=== PATIENT | female | born 1985 | race Caucasian/White ===

== ENCOUNTER 2021-11-21 07:41 | Inpatient (IN) ==
[2021-11-21] MEDS ORDERED: OXYTOCIN 30 UNITS/500 ML BAG IV PRN (08:35)
--- NOTE | 2021-11-21 09:04 | History & Physical Report ---
Date of Service November 21, 2021 Assessment & Plan (1) Encounter for induction of labor: Plan: Pt is a G1 female at 38 4/7 weeks presenting to the Labor and delivery for induction of labor. -Admit to labor and delivery for IOL -Anticipate -Apply sauceda bulb for cervical ripening if needed -Augment with Pitocin as needed -Epidural available as needed -NPO, LR at 125 ml/hr -Continuous monitoring -Continue to monitor BP and treat as needed Admission and Anticipated Discharge Date Admission Date: November 21, 2021 History of Present Illness Chief Complaint: IOL Primary Care Provider: Lulú Lee DO Pt is a G1 female at 38 4/7 weeks presenting to the Labor and delivery for induction of labor. Pt has received routine care in [facility]. has been complicated by ICSI, Breech presentation with successful version on 11/14, CHTN treated with ASA amd propranolol, AMA, Hypothyroid with TSH b1olbde, GDM on insulin, and Polyhydramnios. Pt reports good movement, no gush of fluid, some dark blood from examination yesterday, and possibly some weak contractions that she has noticed intermittently. Pt would like to receive an epidural when able. Pt did not take her propranolol this morning and BP has been running a little high due to this and being anxious about delivery. Otherwise, pt was to receive a sauceda bulb yesterday for cervical ripening, however, a bed was not available for her last night, so this was not done. Pt has no other complaints or concerns at this time. OB Labs: Blood Type O Positive 11/14/21 Antibody Screen NEGATIVE 11/14/21 Hemoglobin 10.7 g/dL (12.0-16.0) L 11/14/21 Hematocrit 32.0 % (37-47) L 11/14/21 Mean Corpuscular Volume 85.8 fL (80-100) 11/14/21 Platelet Count 245 K/uL (130-400) 11/14/21 Rubella IgG Antibody Immune (Immune) 05/31/21 Rapid Plasma Reagin Nonreactive (Nonreactive) 05/31/21 Hepatitis B Surface Antigen Neg (Neg) 05/31/21 HIV (1&2) Ab and P24 Ag, 4th Gener Neg (Neg) 05/31/21 Glucose 1 Hour 50 gm Load 207 mg/dl (70-130) H 06/22/21 Maternal Serum Alpha Fetoprotein 38.3 ng/mL 06/22/21 OB Optional Labs: Chlamydia trachomatis RNA NOT DETECTED (NOT DETECTED) 05/31/21 Neisseria gonorrhoeae RNA NOT DETECTED (NOT DETECTED) 05/31/21 Thyroid Stimulating Hormone (TSH) 0.969 uIu/ml (0.300-4.500) 10/25/21 Alpha Fetoprotein Triple Screen SEE NOTE 06/22/21 Allergies Allergy/AdvReac Type Severity Reaction Status Date / Time Sulfa (Sulfonamide Allergy Unknown Verified 11/20/21 10:29 Antibiotics) Home Medications Medication Instructions Recorded Confirmed Type cholecalciferol (vitamin D3) 25 25 mcg PO DAILY 05/29/21 11/20/21 History mcg (1,000 unit) capsule fluticasone propionate 50 1 spray INTRANASAL DAILY PRN 05/29/21 11/20/21 History mcg/actuation nasal spray,suspension loratadine 10 mg tablet 10 mg PO DAILY 05/29/21 11/20/21 History prenat.vits,ian,pkl-bybl-hanbu 1 tab PO DAILY 05/29/21 11/20/21 History propranolol 20 mg tablet 20 mg PO DAILY tab 05/29/21 11/20/21 History doxylamine succinate 25 mg tablet 25 mg PO HS PRN tab 07/03/21 11/20/21 History (Unisom (doxylamine)) melatonin 3 mg capsule 3 mg PO HS PRN 07/03/21 11/20/21 History acetone (urine) test (Ketone Urine #50 ea 07/16/21 11/20/21 Rx Test) blood sugar diagnostic (OneTouch #150 ea 07/16/21 11/20/21 Rx Verio test strips) blood-glucose meter (OneTouch #1 ea 07/16/21 11/20/21 Rx Verio Flex meter) lancets 33 gauge (OneTouch Delica #150 ea 07/16/21 11/20/21 Rx Plus Lancet) pen needle, diabetic 32 gauge x #50 ea 08/20/21 11/20/21 Rx 5/32" (BD Ultra-Fine Lyssa Pen Needle) levothyroxine 100 mcg tablet 100 mcg PO DAILY #30 tab 10/26/21 11/20/21 Rx insulin NPH isoph U-100 human 100 20 unit SUBCUT QPM 11/21/21 History unit/mL (3 mL) subcutaneous pen (Novolin N Flexpen) Patient History Medical History (Updated 11/21/21 @ 09:01 by Popeye Lubin DO) Breech presentation GERD (gastroesophageal reflux disease) Hypertension chronic IBS (irritable bowel syndrome) Surgical History (Updated 07/03/21 @ 13:35 by Sravani Quiñones) H/O adenoidectomy History of appendectomy S/P wisdom tooth extraction Family History (Updated 07/03/21 @ 13:36 by Sravani Quiñones) Mother Hypertension Hypothyroidism Father [place]'s disease Social History (Updated 11/21/21 @ 07:58 by Teetee Rodriguez RN) Smoking Status: Never smoker Second Hand Exposure: No; Hx Alcohol Use: No Hx Substance Use: No Preferred Language: Ghanaian Communication Ability: Effective Professor Of Religion Required: No Beliefs That Will Affect Care: None marital status: marital status details: Miguel Angel ([phone] Current Living Situation: Spouse Current Living Situation Comment: and 1 dog current occupational status: employed current occupation: [employer] Other Information That Helps Us Care for You: No Feels Safe at Home: Yes Safety Concerns: Feels Safe At This Time Assistive Devices: Contacts and Glasses Review of Systems All systems reviewed & are unremarkable except as noted in HPI & below Physical Exam Physical Exam: General: Alert, oriented, no acute distress Cardiac: Regular rate and rhythm, normal S1, S2. No murmurs appreciated. Respiratory: Clear to auscultation b/l with good air flow entry, symmetric chest rise and fall. No wheezes or crackles. No increased work of breathing or accessory muscle use Abdomen: Gravid, soft, nontender. No guarding or CVA tenderness Skin: No rashes or lesions Extremities: Warm, dry, well-perfused with capillary refill <2s b/l. No lower extremity edema, erythema or swelling. Negative Sofia's sign b/l. Pelvic Exam per Dr. Stallworth Dilation: fingertip Effacement: 50% soft Station: -2 FHR Baseline: 150 BPM Variability:good Accelerations:present Decelerations:none Results & Data ([facility]) Vital Signs (Past 12 Hours) Vital Signs Pulse BP 11/21/21 08:35 100 H 161/93 H 11/21/21 08:22 96 H 163/102 H Supervising Physician Co-Signing Physician Notes cervical balloon placed without difficulty and instilled with 40cc of sterile water and placed on traction and attached to her left thigh. patient tolerated procedure well.Resident Physician Supervision Note: I interviewed and examined the patient. Discussed with Dr. Lubin and agree with findings and plan as documented in the note. Any exceptions or clarifications are listed here: [None] Documented By: Lizbet Cabezas MD, FACOG
[2021-11-21 09:17] LABS: Hematocrit (blood only) 32.1 % (37-47); Hemoglobin 10.8 g/dL (12.0-16.0); Mean Corpuscular Hemoglobin 28.3 pg (25-34); Mean Corpuscular Hgb Conc 33.6 g/dL (32-36); Mean Corpuscular Volume 84.3 fL (80-100); Mean Platelet Volume 12.5 fL (7.4-10.4); Platelet Count 218 K/uL (130-400); RDW Coefficient of Variation 13.7 % (11.5-14.5); RDW Standard Deviation 41.9 fL (36.4-46.3); Red Blood Count 3.81 M/uL (4.2-5.4); White Blood Count 8.53 K/uL (4.8-10.8)
[2021-11-21] MEDS: LACTATED RINGER'S 1,000 ML IV PRN ×3 (09:35→19:10)
[2021-11-21] MEDS: OXYTOCIN 30 UNITS/500 ML BAG IV PRN (09:55)
[2021-11-21] MEDS: BUTORPHANOL TARTRATE 1 MG/ML VIAL IV PRN ×2 (12:32→15:23)
[2021-11-21] MEDS ORDERED: fentaNYL citrate 100 MCG/2 ML VIAL ONE (17:46)
[2021-11-21] MEDS ORDERED: ePHEDrine sulfate 50 MG/ML AMP ONE (17:46)
[2021-11-21] MEDS ORDERED: BUPIVACAINE 0.25% 30 ML VIAL ONE (17:47)
[2021-11-21] MEDS ORDERED: SODIUM CHLORIDE 0.9% INJ 10 ML VIAL ONE (17:47)
[2021-11-21] MEDS ORDERED: fentaNYL 2MCG/ML ROPIVACAINE 1.25MG/ML 100 ML BAG EPI ONE (17:47)
--- NOTE | 2021-11-21 17:47 | Anesthesiology Consultation ---
Date of Service November 21, 2021 Assessment & Plan Chart Review Chart Review: Acceptable Risk for Surgery and Patient NOT seen in Pre Admission Testing Consults Requested none ASA ASA2 Proposed Anesthesia Anesthesia Type: Labor Epidural and CSE History Height/Weight Height: 5 ft 4 in Weight: 80.558 kg Allergies Allergy/AdvReac Type Severity Reaction Status Date / Time Sulfa (Sulfonamide Allergy Unknown Verified 11/20/21 10:29 Antibiotics) Medications Home Medications Medication Instructions Recorded Confirmed Last Taken cholecalciferol (vitamin D3) 25 25 mcg PO DAILY 05/29/21 11/20/21 11/20/21 08:00 mcg (1,000 unit) capsule 150 mcg fluticasone propionate 50 1 spray INTRANASAL DAILY PRN 05/29/21 11/20/21 Unknown mcg/actuation nasal spray,suspension loratadine 10 mg tablet 10 mg PO DAILY 05/29/21 11/20/21 11/20/21 08:00 10 mg prenat.vits,ian,yry-tmhf-dhkax 1 tab PO DAILY 05/29/21 11/20/21 11/20/21 08:00 1 tab propranolol 20 mg tablet 20 mg PO DAILY tab 05/29/21 11/20/21 11/20/21 07:00 20 mg doxylamine succinate 25 mg tablet 25 mg PO HS PRN tab 07/03/21 11/20/21 11/20/21 21:00 (Unisom (doxylamine)) 25 mg melatonin 3 mg capsule 3 mg PO HS PRN 07/03/21 11/20/21 11/20/21 21:00 3 mg acetone (urine) test (Ketone Urine #50 ea 07/16/21 11/20/21 Unknown Test) blood sugar diagnostic (OneTouch #150 ea 07/16/21 11/20/21 Unknown Verio test strips) blood-glucose meter (OneTouch #1 ea 07/16/21 11/20/21 Unknown Verio Flex meter) lancets 33 gauge (OneTouch Delica #150 ea 07/16/21 11/20/21 Unknown Plus Lancet) pen needle, diabetic 32 gauge x #50 ea 08/20/21 11/20/21 Unknown 5/32" (BD Ultra-Fine Lyssa Pen Needle) levothyroxine 100 mcg tablet 100 mcg PO DAILY #30 tab 10/26/21 11/20/2122 07:00 100 mcg insulin NPH isoph U-100 human 100 20 unit SUBCUT QPM 11/21/21 11/19/21 21:00 unit/mL (3 mL) subcutaneous pen 20 units (Novolin N Flexpen) Active Medications Generic Name Dose Route Start Last Admin Trade Name Freq PRN Reason Stop Dose Admin Butorphanol Tartrate 1 mg 11/21/21 12:26 11/21/21 15:23 Butorphanol Tartrate 1 Mg/Ml Vial IV 12/21/21 12:25 1 mg Q2H PRN Administration Pain Lactated Ringer's 1,000 mls @ 125 mls/hr 11/21/21 08:35 11/21/21 17:40 Lr IV 11/23/21 08:34 999 mls/hr .Q8H PRN Infusion L&D Protocol Protocol Oxytocin 30 units in 500 mls @ 17 mls/hr 11/21/21 09:28 11/21/21 17:05 Pitocin IV 11/23/21 09:27 1.02 units/hr .Q24H PRN 17 mls/hr Labor Induction/Augmentation Titration Protocol 1.02 UNITS/HR Past Medical History Medical History Breech presentation GERD (gastroesophageal reflux disease) Hypertension chronic IBS (irritable bowel syndrome) Exercise / Class Metabolic Activity II 4-5 Yardwork/Stairs/Walk up hill Past Family History Family History Mother Hypertension Hypothyroidism Father [place]'s disease Past Surgical History Surgical History H/O adenoidectomy History of appendectomy S/P wisdom tooth extraction Past Anesthesia History No Hx of Anesthesia Complications and No Family Hx of Anesthesia Complications History of PONV No Hx of PONV and No Hx of Motion Sickness Social History Smoking Status: Never smoker Hx Alcohol Use: No Hx Substance Use: No substance use type: does not use Physical Exam Vital Signs Last Vital Signs Temp 37 C 11/21/21 08:06 Pulse 69 11/21/21 16:58 Resp 18 11/21/21 08:06 BP 131/81 11/21/21 16:58 Testing Laboratory Results 11/21/21 09:05 11/21/21 11/21/21 11/21/21 16:32 13:32 10:28 POC Glucose 82 83 79
[2021-11-21] MEDS ORDERED: ONDANSETRON INJ 2 MG/ML 2 ML VIAL IV PRN (18:24)
[2021-11-21] MEDS ORDERED: ePHEDrine sulfate 50 MG/ML AMP IV PRN (18:24)
[2021-11-21] MEDS ORDERED: NALOXONE HCL 0.4 MG/1 ML VIAL/CARP IV PRN (18:24)
[2021-11-21] MEDS ORDERED: NALOXONE HCL 1 MG in SODIUM CHLORIDE 0.9% 1000ML 1,000 ML IV PRN (18:24)
[2021-11-21] MEDS ORDERED: NALBUPHINE HCL INJ 10 MG/ML AMP IV PRN (18:24)
[2021-11-21] MEDS ORDERED: PROMETHAZINE HCL 25 MG in SODIUM CHLORIDE 0.9% 50 ML IV PRN (18:24)
[2021-11-21] MEDS ORDERED: diphenhydrAMINE 50 MG/ML VIAL IV PRN (18:24)
[2021-11-22] MEDS: fentaNYL 2MCG/ML ROPIVACAINE 1.25MG/ML 100 ML BAG EPI PRN ×3 (01:37→10:15)
[2021-11-22] MEDS: LACTATED RINGER'S 1,000 ML IV PRN ×2 (03:10→06:57)
[2021-11-22] MEDS ORDERED: NURSING L&D Epidural Breakthrough Pain Update ONE (06:22)
[2021-11-22] MEDS: LEVOTHYROXINE SODIUM 100 MCG TABLET PO SCH (06:36)
[2021-11-22] MEDS: OXYTOCIN 30 UNITS/500 ML BAG IV PRN (06:58)
[2021-11-22] MEDS ORDERED: fentaNYL citrate 100 MCG/2 ML VIAL ONE ×2 (10:50→12:37)
[2021-11-22] MEDS ORDERED: miSOPROStoL 50 MCG TAB ONE (10:51)
[2021-11-22] MEDS ORDERED: BUPIVACAINE 0.25% 30 ML VIAL ONE (10:51)
[2021-11-22] MEDS: PROPRANOLOL HCL 20 MG TAB PO SCH (10:53)
[2021-11-22] MEDS ORDERED: CITRIC ACID/SODIUM CITRATE 15 ML UDC ONE (12:02)
--- NOTE | 2021-11-22 12:05 | Labor Progress Brief Note ---
Date of Service November 22, 2021 Subjective Patient feeling comfortable with epidural after recent bumper dose. Assessment & Plan (1) Supervision of elderly primigravida: (2) Chronic hypertension affecting : (3) Hypothyroidism during : (4) Insulin controlled gestational diabetes mellitus (GDM) during : (5) resulting from in vitro fertilization, antepartum: (6) Successful external cephalic version: (7) Cephalopelvic disproportion: Plan: Given the marked edema, failure to dilate, narrow pelvic outlet, and now swelling cervix with blood tinge in urine too, I am highly suspicious of cephalopelvic disproportion. status is reassuring. Discussed with patient and FOB that I I am concerned we are gaining little benefit if we continue IOL, and that there are risks to continuing. She has already got a lot of third-spacing and low urine output, risk for pulmonary edema and hemorrhage due to long use of high doses of pitocin, is not close to delivery, and not making recent progress. I am unconvinced that further efforts to force her to adequate contractions will result in vaginal delivery. Discussed the options to continue vs to change to . Answered questions, acknowledged patient's fears about , discussed pain management plans for delivery, and completed consent process with patient and FOB, including answering questions about route of delivery for future pregnancies. They are ready to proceed to . Admission and Anticipated Discharge Date Admission Date: November 21, 2021 Physical Exam Genitourinary: Labia have been edematous (each the size of 1/2 an orange) si nce I took over care of this patient this morning, with a dent in the L labium majus from the sauceda resting against it. My own exam of this patient 2 hours ago was 4/100/-1. At that time I placed an IUPC. I counseled the patient and FOB that I was concerned for CPD. Although cervical dilation does not regress, I could not agree with the prior exams from two different examiners, of 7.5/0 per RN around 6am and then 7cm/-[address] Stallworth around 8am; my finding of 4cm may represent swelling, or simply a difference in examiners, or maybe some of both. I explained that I wanted to re-examine her myself so there would be two exams from the same examiner before any decisions were made. The patient began to complain of pressure, and therefore ANUSHA Alfaro checked her around 11:30, just as I was returning to check her myself. Angelina called her 6/90%, explaining to me that she "could stretch the cervix to" 6cm. She also told he she felt swollen tissue on the R side of the vagina that may be new. I then reassessed the cervix myself and I cannot say that I think there is any change in dilation from my earlier exam of 4cm. New mild swelling of the cervix does now make it 90 instead of 100% effaced. I do not feel station has improved at all. Swelling on the R is not obvious to me, but narrow outlet and puffy vaginal kim could be what ANUSHA Alfaro was feeling, as there is certainly a lot of edema. Of note, the urine in the sauceda is now also pink-tinged. I note her history in this induction includes prolonged use of pitocin at 30mu/min, prior episode of low UOP which was treated with IVF bolus, and have reviewed her medical complications as well. Results & Data ([facility]) Vital Signs (Past 12 Hours) Vital Signs Temp Pulse Resp BP Pulse Ox 11/22/21 11:48 110 H 135/89 85 L 11/22/21 11:45 104 H 96 11/22/21 11:42 103 H 143/79 H 11/22/21 11:40 105 H 96 11/22/21 11:37 98 H 135/78 11/22/21 11:35 98 H 88 L 11/22/21 11:32 96 H 137/79 11/22/21 11:30 97 H 95 11/22/21 11:27 99 H 138/77 11/22/21 11:25 98 H 94 11/22/21 11:21 98 H 137/68 11/22/21 11:20 103 H 92 11/22/21 11:19 107 H 144/71 H 11/22/21 11:17 96 H 142/75 H 11/22/21 11:15 101 H 142/72 H 96 11/22/21 11:13 92 H 142/76 H 11/22/21 11:12 96 H 150/79 H 11/22/21 11:10 101 H 94 11/22/21 11:09 99 H 147/70 H 11/22/21 11:08 109 H 143/63 H 11/22/21 11:06 121 H 176/71 H 11/22/21 11:05 115 H 91 11/22/21 11:02 133 H 163/96 H 11/22/21 11:00 95 H 72 L 11/22/21 10:55 111 H 91 11/22/21 10:52 115 H 75 L 11/22/21 10:50 95 H 94 11/22/21 10:47 100 H 85 L 11/22/21 10:46 93 H 141/96 H 11/22/21 10:45 89 96 11/22/21 10:40 97 H 94 11/22/21 10:35 93 H 100 11/22/21 10:31 93 H 140/91 11/22/21 10:30 94 H 100 11/22/21 10:25 92 H 98 11/22/21 10:20 92 H 100 11/22/21 10:16 90 137/88 11/22/21 10:15 89 99 11/22/21 10:10 88 97 11/22/21 10:07 92 H 85 L 11/22/21 10:05 87 98 11/22/21 10:01 87 135/83 11/22/21 10:00 97 H 96 11/22/21 09:55 101 H 97 11/22/21 09:52 99.1 F 22 11/22/21 09:50 90 98 11/22/21 09:47 86 142/88 H 11/22/21 09:45 100 H 99 11/22/21 09:40 107 H 96 11/22/21 09:35 94 H 97 11/22/21 09:32 107 H 136/77 11/22/21 09:30 89 99 11/22/21 09:25 88 100 11/22/21 09:20 96 H 100 11/22/21 09:17 88 137/69 11/22/21 09:15 94 H 100 11/22/21 09:10 96 H 100 11/22/21 09:05 84 100 11/22/21 09:01 109 H 123/78 11/22/21 09:00 105 H 96 11/22/21 08:55 96 H 97 11/22/21 08:50 103 H 88 L 11/22/21 08:46 98 H 134/82 11/22/21 08:45 100 H 94 11/22/21 08:40 100 H 96 11/22/21 08:35 92 H 97 11/22/21 08:32 95 H 137/80 11/22/21 08:30 93 H 98 11/22/21 08:25 100 H 99 11/22/21 08:20 96 H 98 11/22/21 08:17 90 134/80 11/22/21 08:15 95 H 99 11/22/21 08:10 94 H 97 11/22/21 08:05 92 H 100 11/22/21 08:03 89 139/81 11/22/21 08:00 89 97 11/22/21 07:55 90 100 11/22/21 07:50 96 H 96 11/22/21 07:47 90 142/82 H 11/22/21 07:45 94 H 96 11/22/21 07:40 97 H 99 11/22/21 07:35 102 H 97 11/22/21 07:31 100 H 139/90 11/22/21 07:30 100 H 95 11/22/21 07:26 99 H 84 L 11/22/21 07:25 106 H 94 11/22/21 07:20 102 H 95 11/22/21 07:15 98.4 F 103 H 18 139/89 93 11/22/21 07:14 106 H 84 L 11/22/21 07:10 106 H 92 11/22/21 07:05 97 H 96 11/22/21 07:04 99 H 144/86 H 11/22/21 07:00 100 H 96 11/22/21 06:55 91 H 93 11/22/21 06:54 105 H 132/78 11/22/21 06:53 95 H 82 L 11/22/21 06:50 99 H 96 11/22/21 06:45 102 H 96 11/22/21 06:44 90 142/88 H 11/22/21 06:40 94 H 95 11/22/21 06:35 92 H 95 11/22/21 06:34 98 H 140/90 84 L 11/22/21 06:30 107 H 80 L 11/22/21 06:29 101 H 79 L 11/22/21 06:25 112 H 90 11/22/21 06:24 146 H 141/88 H 81 L 11/22/21 06:20 100 H 76 L 11/22/21 06:15 106 H 127/74 95 11/22/21 06:10 130 H 96 11/22/21 06:05 111 H 96 11/22/21 06:04 116 H 140/68 11/22/21 06:00 107 H 99 11/22/21 05:55 93 H 100 11/22/21 05:54 100 H 130/63 11/22/21 05:50 95 H 98 11/22/21 05:45 91 H 99 11/22/21 05:44 92 H 126/63 11/22/21 05:40 92 H 99 11/22/21 05:35 92 H 97 11/22/21 05:34 91 H 126/62 11/22/21 05:30 93 H 100 11/22/21 05:28 103 H 84 L 11/22/21 05:25 89 127/62 98 11/22/21 05:20 108 H 99 11/22/21 05:15 96 H 135/72 95 11/22/21 05:13 99.7 F H 18 11/22/21 05:10 86 100 11/22/21 05:05 92 H 100 11/22/21 05:04 82 128/73 11/22/21 05:00 91 H 95 11/22/21 04:55 94 H 93 11/22/21 04:54 91 H 128/75 11/22/21 04:50 90 93 11/22/21 04:45 90 95 11/22/21 04:44 88 133/77 11/22/21 04:40 94 H 96 11/22/21 04:35 98 H 97 11/22/21 04:34 86 133/77 11/22/21 04:30 83 96 11/22/21 04:25 95 H 96 11/22/21 04:24 92 H 139/82 11/22/21 04:20 97 H 93 11/22/21 04:15 91 H 96 11/22/21 04:14 90 135/83 11/22/21 04:10 87 94 11/22/21 04:05 90 95 11/22/21 04:04 84 135/78 11/22/21 04:00 83 95 11/22/21 03:55 89 93 11/22/21 03:54 85 134/80 11/22/21 03:50 91 H 97 11/22/21 03:45 85 134/78 97 11/22/21 03:40 84 96 11/22/21 03:35 86 98 11/22/21 03:34 77 145/78 H 11/22/21 03:30 88 96 11/22/21 03:29 97 H 18 140/70 11/22/21 03:25 118 H 95 11/22/21 03:24 108 H 84 L 11/22/21 03:20 79 97 11/22/21 03:15 79 139/85 99 11/22/21 03:12 98.4 F 18 11/22/21 03:11 105 H 83 L 11/22/21 03:10 105 H 98 11/22/21 03:05 84 96 11/22/21 03:04 81 131/73 11/22/21 03:00 84 97 11/22/21 02:55 84 99 11/22/21 02:54 80 132/77 11/22/21 02:50 81 99 11/22/21 02:45 97 H 98 11/22/21 02:44 86 136/83 11/22/21 02:40 88 99 11/22/21 02:39 102 H 86 L 11/22/21 02:35 90 96 11/22/21 02:34 100 H 129/76 11/22/21 02:30 98 H 99 11/22/21 02:25 101 H 95 11/22/21 02:24 95 H 133/78 11/22/21 02:20 98.6 F 97 H 18 98 11/22/21 02:15 83 100 11/22/21 02:14 83 133/71 11/22/21 02:10 77 99 11/22/21 02:05 85 100 11/22/21 02:04 88 128/71 11/22/21 02:00 84 99 11/22/21 01:55 97 H 100 11/22/21 01:54 80 128/67 11/22/21 01:50 82 100 11/22/21 01:45 84 99 11/22/21 01:44 82 135/68 11/22/21 01:40 85 98 11/22/21 01:36 89 86 L 11/22/21 01:35 91 H 129/65 100 11/22/21 01:31 85 85 L 11/22/21 01:30 80 100 11/22/21 01:25 90 98 11/22/21 01:24 86 116/68 11/22/21 01:22 98.4 F 20 11/22/21 01:20 79 93 11/22/21 01:15 82 99 11/22/21 01:14 88 130/85 11/22/21 01:10 85 99 11/22/21 01:05 86 125/76 98 11/22/21 01:04 102 H 84 L 11/22/21 01:00 104 H 96 11/22/21 00:56 91 H 84 L 11/22/21 00:55 79 133/75 94 11/22/21 00:50 75 95 11/22/21 00:45 78 125/71 95 11/22/21 00:40 79 97 11/22/21 00:35 77 99 11/22/21 00:34 71 124/74 11/22/21 00:30 75 95 11/22/21 00:25 75 130/78 97 11/22/21 00:20 74 96 11/22/21 00:15 82 96 11/22/21 00:14 85 145/78 H 11/22/21 00:10 76 97 11/22/21 00:05 81 136/78 98 11/22/21 00:00 77 98 11/21/21 23:55 76 96 11/21/21 23:54 79 137/63 Coding Level of Care Code None Diagnoses Supervision of elderly primigravida O09.519 Chronic hypertension affecting O10.919 Hypothyroidism during O99.280; E03.9 Insulin controlled gestational diabetes mellitus (GDM) during O24.414 resulting from in vitro fertilization, antepartum O09.819 Successful external cephalic version Cephalopelvic disproportion O33.9
[2021-11-22] MEDS ORDERED: CITRIC ACID/SODIUM CITRATE 15 ML UDC PO SCH (12:15)
[2021-11-22] MEDS ORDERED: OXYTOCIN 10 UNITS/ML 10ML VIAL ONE ×6 (12:37→15:08)
[2021-11-22] MEDS ORDERED: ONDANSETRON INJ 2 MG/ML 2 ML VIAL ONE (12:37)
[2021-11-22] MEDS ORDERED: MoRPHine SULFATE PF 1 MG/ML 10 ML AMP/VIAL ONE (12:38)
[2021-11-22] MEDS ORDERED: PHENYLEPHRINE 100MCG/ML 5ML SYR ONE (15:19)
[2021-11-22] MEDS ORDERED: ONDANSETRON INJ 2 MG/ML 2 ML VIAL IV PRN (15:23)
[2021-11-22] MEDS ORDERED: LACTATED RINGER'S 500 ML IV PRN (15:23)
[2021-11-22] MEDS ORDERED: NALOXONE HCL 1 MG in SODIUM CHLORIDE 0.9% 1000ML 1,000 ML IV PRN (15:23)
[2021-11-22] MEDS ORDERED: NALOXONE HCL 0.08 MG in SYRINGE 1.8 ML IV PRN (15:23)
[2021-11-22] MEDS ORDERED: PROMETHAZINE HCL 25 MG in SODIUM CHLORIDE 0.9% 50 ML IV PRN (15:23)
[2021-11-22] MEDS ORDERED: MoRPHine SULFATE PF 1 MG/ML 10 ML AMP/VIAL INT SPINAL ONE (15:23)
[2021-11-22] MEDS ORDERED: diphenhydrAMINE 50 MG/ML VIAL IV PRN (15:23)
[2021-11-22] MEDS ORDERED: ePHEDrine sulfate 50 MG/ML AMP IV PRN (15:23)
[2021-11-22] MEDS ORDERED: HYDROmorphone INJ 0.5 MG/0.5 ML SYR IV PRN (15:23)
[2021-11-22] MEDS ORDERED: NALOXONE HCL 0.4 MG/1 ML VIAL/CARP IV PRN (15:23)
[2021-11-22] MEDS ORDERED: SODIUM CHLORIDE 0.9% 1000ML 1,000 ML IV SCH (15:30)
[2021-11-22] MEDS ORDERED: DC INTRASPINAL MORPHINE SCH (15:30)
[2021-11-22] MEDS ORDERED: NO NARCOTICS OR SEDATIVES SCH (15:30)
--- NOTE | 2021-11-22 15:31 | Operative Report ---
PG Post Operative Report Pre & Post Diagnosis Operation Date: 11/22/21 12:20 Pre-Op Diagnosis: A2GDM cHTN at term Induction of Labor Failure to Progress Suspected CPD Post-Op Diagnosis: Same I identified the patient and participated in the time-out.: Yes Procedure Operation Date: 11/22/21 12:20 Actual Procedures Primary Low Transverse Section Surgeon Ese Kay MD Treating Plant Supervisor Sherri Estimated Blood Loss 500 Findings Consistent with Post-Op Diagnosis Specimens Placenta, cord blood Anesthesia Type Spinal Complications none Disposition Accompanied Patient To Recovery: Yes Disposition: L&D Description of Procedure The patient was placed operating table in the supine position with a leftward tilt. She was prepped and draped in standard sterile fashion. The anesthetic was tested and found to be adequate. A time-out was held, identifying correct patient, procedure, positioning and preoperative antibiotics. There were no concerns. A Pfannenstiel skin incision was made with a knife and taken down to the underlying layer of fascia. The fascia was incised in the midline with the knife and taken out laterally with scissors. The superior edge of the fascial incision was grasped, elevated and dissected off the underlying rectus both superiorly and inferiorly. The muscles were bluntly in the midline. The peritoneum was entered bluntly, and a large amount of jelly-like edematous fluid was encountered in the peritoneal cavity. The incision was then stretched. The bladder retractor was placed. The vesicouterine peritoneum was identified, entered with scissors and taken out laterally with scissors. The bladder flap was created digitally. A hysterotomy incision was created transversely in the lower uterine segment, final entry being accomplished in a blunt manner with the cloth mercerizer operator's fingers. Clear amniotic fluid was encountered. The cloth mercerizer operator's hand was used to elevate the head to the hysterotomy. The head was delivered using mild fundal pressure, and the shoulders and body followed without difficulty. The cord was clamped and cut and the was then handed off to the awaiting nursery team. Cord blood was obtained. The placenta was manually extracted. The uterus was exteriorized and cleared of all clot and debris with moistened laparotomy sponges. The hysterotomy incision was repaired in two layers, the first in a running locked layer, the second in an imbricating layer, with a [id number] suture being applied at the left angle inferior to the hysterotomy line. Adonis was applied over the area of the bladder flap to prevent oozing. The ovaries and tubes were seen to be normal bilaterally. The uterus was gently replaced in the abdomen, and the gutters were cleared of clot and debris. A final inspection of the hysterotomy revealed good hemostasis. The rectus muscles were allowed to reapproximate naturally. The fascia was then reapproximated with 1 Vicryl in a running nonlocked manner. The fascia was examined and found to be free of defect following closure. The subcutaneous tissue was copiously irrigated and reapproximated with 0-chromic, then the skin edges were closed with 4-0 monocryl in a subcuticular fashion. A dermabond dressing was applied. The sauceda was found to be draining clear yellow urine at completion of the procedure. I attest to the content of the Intraoperative Record and any orders documented therein. Any exceptions are noted below. I attest to the content of the Intraoperative Record and any orders documented therein. Any exceptions are noted below. OB Procedure Charges [id number]
[2021-11-22] MEDS ORDERED: OXYTOCIN 30 UNITS in LACTATED RINGER'S 1,000 ML IV SCH (15:33)
[2021-11-22] MEDS ORDERED: BENZOCAINE 20% AER SPR 82.5 GM CAN EXT PRN (15:33)
[2021-11-22] MEDS ORDERED: HYDROCORTISONE ACETATE 25 MG SUPP PR PRN (15:33)
[2021-11-22] MEDS ORDERED: DIPHTHERIA/TETANUS/PERTUSSIS 0.5 ML SYR/VIAL IM ONE (15:33)
[2021-11-22] MEDS ORDERED: MAGNESIUM HYDROXIDE SUSP 30 ML UDC PO PRN (15:33)
[2021-11-22] MEDS ORDERED: FLUTICASONE PROPIONATE NA SPR 16 GM BTL PRN (15:33)
[2021-11-22] MEDS ORDERED: LACTATED RINGER'S 1,000 ML IV SCH (15:33)
[2021-11-22] MEDS ORDERED: SENNA 8.6 MG TAB PO PRN (15:33)
[2021-11-22] MEDS: KETOROLAC 30 MG/ML VIAL IV PRN ×2 (16:01→22:43)
--- NOTE | 2021-11-22 16:10 | Anesthesia Procedure Note ---
Date of Service November 22, 2021 Anesthesia Post Epidural Note Vital Signs Vital Signs: Temp Pulse Resp BP Pulse Ox 36.5 C 77 14 143/79 H 96 11/22/21 15:33 11/22/21 16:00 11/22/21 16:00 11/22/21 16:00 11/22/21 16:00 Pain Intensity Abdomen: Pain Intensity: 6 Notes Mental Status: alert / awake / arousable and participated in evaluation Nausea / Vomiting: adequately controlled Pain: adequately controlled Airway Patency, RR, SpO2: stable & adequate BP & HR: stable & adequate Hydration State: stable & adequate Neuraxial Anesthesia: was administered and sensory block is resolving Anesthetic Complications: no major complications apparent and Pt Satisfied with anesthetic care Epidural: Removed without complications and With tip intact Notes: Epidural site clean, dry and intact. No signs of edema, erythema or bruising at insertion site. Pt instructed to request anesthesia if she has residual lower extremity numbness or if she develops lower extremity pain or weakness, back pain or headache.
--- NOTE | 2021-11-22 16:11 | Anesthesiology Progress Note ---
Date of Service November 22, 2021 Anesthesia Post Procedure Vital Signs Vital Signs: Temp Pulse Pulse Resp BP BP Pulse Ox 11/22/21 16:00 77 14 143/79 H 96 11/22/21 15:50 75 18 122/83 99 11/22/21 15:40 78 22 129/80 98 11/22/21 15:33 36.5 C 77 21 129/76 99 11/22/21 14:10 90 88 L 11/22/21 14:09 93 H 143/71 H 11/22/21 14:05 96 H 89 L 11/22/21 14:02 99 H 150/83 H 11/22/21 14:00 107 H 18 83 L 11/22/21 13:57 95 H 139/78 11/22/21 13:55 95 H 93 11/22/21 13:52 89 133/73 11/22/21 13:50 90 93 11/22/21 13:47 36.8 C 88 137/79 11/22/21 13:45 89 93 11/22/21 13:42 88 138/78 11/22/21 13:40 88 94 11/22/21 13:37 91 H 133/73 11/22/21 13:35 90 94 11/22/21 13:32 36.9 C 89 18 133/78 11/22/21 13:30 90 94 11/22/21 13:27 87 132/73 11/22/21 13:25 85 93 11/22/21 13:22 91 H 135/76 11/22/21 13:20 94 H 96 11/22/21 13:17 91 H 132/73 11/22/21 13:15 86 94 11/22/21 13:12 90 133/75 11/22/21 13:10 86 93 11/22/21 13:07 88 130/77 11/22/21 13:05 89 93 11/22/21 13:03 90 128/81 11/22/21 13:00 89 98 11/22/21 12:57 94 H 138/76 11/22/21 12:56 94 H 84 L 11/22/21 12:55 88 97 11/22/21 12:52 91 H 137/78 11/22/21 12:50 89 97 11/22/21 12:48 93 H 137/83 11/22/21 12:45 92 H 98 11/22/21 12:42 96 H 136/80 11/22/21 12:40 94 H 93 11/22/21 12:37 90 122/92 11/22/21 12:35 89 100 11/22/21 12:32 91 H 138/83 11/22/21 12:30 97 H 96 11/22/21 12:27 101 H 141/85 H 11/22/21 12:25 90 100 11/22/21 12:23 91 H 139/86 11/22/21 12:20 90 92 11/22/21 12:17 91 H 139/80 11/22/21 12:15 100 H 98 11/22/21 12:12 92 H 84 L 11/22/21 12:10 96 H 97 11/22/21 12:08 95 H 138/90 11/22/21 12:05 89 100 11/22/21 12:02 95 H 142/79 H 11/22/21 12:00 97 H 80 L 11/22/21 11:57 97 H 141/78 H 11/22/21 11:55 99 H 94 11/22/21 11:52 107 H 147/78 H 11/22/21 11:50 109 H 93 11/22/21 11:48 110 H 135/89 85 L 11/22/21 11:45 104 H 96 11/22/21 11:42 103 H 143/79 H 11/22/21 11:40 105 H 96 11/22/21 11:37 98 H 135/78 11/22/21 11:35 98 H 88 L 11/22/21 11:32 96 H 137/79 11/22/21 11:30 97 H 95 11/22/21 11:27 99 H 138/77 11/22/21 11:25 98 H 94 11/22/21 11:21 98 H 137/68 11/22/21 11:20 103 H 92 11/22/21 11:19 107 H 144/71 H 11/22/21 11:17 96 H 142/75 H 11/22/21 11:15 101 H 142/72 H 96 11/22/21 11:13 92 H 142/76 H 11/22/21 11:12 96 H 150/79 H 11/22/21 11:10 101 H 94 11/22/21 11:09 99 H 147/70 H 11/22/21 11:08 109 H 143/63 H 11/22/21 11:06 121 H 176/71 H 11/22/21 11:05 115 H 91 11/22/21 11:02 133 H 163/96 H 11/22/21 11:00 95 H 72 L 11/22/21 10:55 111 H 91 11/22/21 10:52 115 H 75 L 11/22/21 10:50 95 H 94 11/22/21 10:47 100 H 85 L 11/22/21 10:46 93 H 141/96 H 11/22/21 10:45 89 96 11/22/21 10:40 97 H 94 11/22/21 10:35 93 H 100 11/22/21 10:31 93 H 140/91 11/22/21 10:30 94 H 100 11/22/21 10:25 92 H 98 11/22/21 10:20 92 H 100 11/22/21 10:16 90 137/88 11/22/21 10:15 89 99 11/22/21 10:10 88 97 11/22/21 10:07 92 H 85 L 11/22/21 10:05 87 98 11/22/21 10:01 87 135/83 11/22/21 10:00 97 H 96 11/22/21 09:55 101 H 97 11/22/21 09:52 37.3 C 22 11/22/21 09:50 90 98 11/22/21 09:47 86 142/88 H 11/22/21 09:45 100 H 99 11/22/21 09:40 107 H 96 11/22/21 09:35 94 H 97 11/22/21 09:32 107 H 136/77 11/22/21 09:30 89 99 11/22/21 09:25 88 100 11/22/21 09:20 96 H 100 11/22/21 09:17 88 137/69 11/22/21 09:15 94 H 100 11/22/21 09:10 96 H 100 11/22/21 09:05 84 100 11/22/21 09:01 109 H 123/78 11/22/21 09:00 105 H 96 11/22/21 08:55 96 H 97 11/22/21 08:50 103 H 88 L 11/22/21 08:46 98 H 134/82 11/22/21 08:45 100 H 94 11/22/21 08:40 100 H 96 11/22/21 08:35 92 H 97 11/22/21 08:32 95 H 137/80 11/22/21 08:30 93 H 98 11/22/21 08:25 100 H 99 11/22/21 08:20 96 H 98 11/22/21 08:17 90 134/80 11/22/21 08:15 95 H 99 11/22/21 08:10 94 H 97 11/22/21 08:05 92 H 100 11/22/21 08:03 89 139/81 11/22/21 08:00 89 97 11/22/21 07:55 90 100 11/22/21 07:50 96 H 96 11/22/21 07:47 90 142/82 H 11/22/21 07:45 94 H 96 11/22/21 07:40 97 H 99 11/22/21 07:35 102 H 97 11/22/21 07:31 100 H 139/90 11/22/21 07:30 100 H 95 11/22/21 07:26 99 H 84 L 11/22/21 07:25 106 H 94 11/22/21 07:20 102 H 95 11/22/21 07:15 36.9 C 103 H 18 139/89 93 11/22/21 07:14 106 H 84 L 11/22/21 07:10 106 H 92 11/22/21 07:05 97 H 96 11/22/21 07:04 99 H 144/86 H 11/22/21 07:00 100 H 96 11/22/21 06:55 91 H 93 11/22/21 06:54 105 H 132/78 11/22/21 06:53 95 H 82 L 11/22/21 06:50 99 H 96 11/22/21 06:45 102 H 96 11/22/21 06:44 90 142/88 H 11/22/21 06:40 94 H 95 11/22/21 06:35 92 H 95 11/22/21 06:34 98 H 140/90 84 L 11/22/21 06:30 107 H 80 L 11/22/21 06:29 101 H 79 L 11/22/21 06:25 112 H 90 11/22/21 06:24 146 H 141/88 H 81 L 11/22/21 06:20 100 H 76 L 11/22/21 06:15 106 H 127/74 95 11/22/21 06:10 130 H 96 11/22/21 06:05 111 H 96 11/22/21 06:04 116 H 140/68 11/22/21 06:00 107 H 99 11/22/21 05:55 93 H 100 11/22/21 05:54 100 H 130/63 11/22/21 05:50 95 H 98 11/22/21 05:45 91 H 99 11/22/21 05:44 92 H 126/63 11/22/21 05:40 92 H 99 11/22/21 05:35 92 H 97 11/22/21 05:34 91 H 126/62 11/22/21 05:30 93 H 100 11/22/21 05:28 103 H 84 L 11/22/21 05:25 89 127/62 98 11/22/21 05:20 108 H 99 11/22/21 05:15 96 H 135/72 95 11/22/21 05:13 37.6 C H 18 11/22/21 05:10 86 100 11/22/21 05:05 92 H 100 11/22/21 05:04 82 128/73 11/22/21 05:00 91 H 95 11/22/21 04:55 94 H 93 11/22/21 04:54 91 H 128/75 11/22/21 04:50 90 93 11/22/21 04:45 90 95 11/22/21 04:44 88 133/77 11/22/21 04:40 94 H 96 11/22/21 04:35 98 H 97 11/22/21 04:34 86 133/77 11/22/21 04:30 83 96 11/22/21 04:25 95 H 96 11/22/21 04:24 92 H 139/82 11/22/21 04:20 97 H 93 11/22/21 04:15 91 H 96 11/22/21 04:14 90 135/83 11/22/21 04:10 87 94 11/22/21 04:05 90 95 11/22/21 04:04 84 135/78 04/07/22 04:00 83 95 11/22/21 03:55 89 93 11/22/21 03:54 85 134/80 11/22/21 03:50 91 H 97 11/22/21 03:45 85 134/78 97 11/22/21 03:40 84 96 11/22/21 03:35 86 98 11/22/21 03:34 77 145/78 H 11/22/21 03:30 88 96 11/22/21 03:29 97 H 18 140/70 11/22/21 03:25 118 H 95 11/22/21 03:24 108 H 84 L 11/22/21 03:20 79 97 11/22/21 03:15 79 139/85 99 11/22/21 03:12 36.9 C 18 11/22/21 03:11 105 H 83 L 11/22/21 03:10 105 H 98 11/22/21 03:05 84 96 11/22/21 03:04 81 131/73 11/22/21 03:00 84 97 11/22/21 02:55 84 99 11/22/21 02:54 80 132/77 11/22/21 02:50 81 99 11/22/21 02:45 97 H 98 11/22/21 02:44 86 136/83 11/22/21 02:40 88 99 11/22/21 02:39 102 H 86 L 11/22/21 02:35 90 96 11/22/21 02:34 100 H 129/76 11/22/21 02:30 98 H 99 11/22/21 02:25 101 H 95 11/22/21 02:24 95 H 133/78 11/22/21 02:20 37.0 C 97 H 18 98 11/22/21 02:15 83 100 11/22/21 02:14 83 133/71 11/22/21 02:10 77 99 11/22/21 02:05 85 100 11/22/21 02:04 88 128/71 11/22/21 02:00 84 99 11/22/21 01:55 97 H 100 11/22/21 01:54 80 128/67 11/22/21 01:50 82 100 11/22/21 01:45 84 99 11/22/21 01:44 82 135/68 11/22/21 01:40 85 98 11/22/21 01:36 89 86 L 11/22/21 01:35 91 H 129/65 100 11/22/21 01:31 85 85 L 11/22/21 01:30 80 100 11/22/21 01:25 90 98 11/22/21 01:24 86 116/68 11/22/21 01:22 36.9 C 20 11/22/21 01:20 79 93 11/22/21 01:15 82 99 11/22/21 01:14 88 130/85 11/22/21 01:10 85 99 11/22/21 01:05 86 125/76 98 11/22/21 01:04 102 H 84 L 11/22/21 01:00 104 H 96 11/22/21 00:56 91 H 84 L 11/22/21 00:55 79 133/75 94 11/22/21 00:50 75 95 11/22/21 00:45 78 125/71 95 11/22/21 00:40 79 97 11/22/21 00:35 77 99 11/22/21 00:34 71 124/74 11/22/21 00:30 75 95 11/22/21 00:25 75 130/78 97 11/22/21 00:20 74 96 11/22/21 00:15 82 96 11/22/21 00:14 85 145/78 H 11/22/21 00:10 76 97 11/22/21 00:05 81 136/78 98 11/22/21 00:00 77 98 11/21/21 23:55 76 96 11/21/21 23:54 79 137/63 11/21/21 23:50 81 96 11/21/21 23:45 78 97 11/21/21 23:44 75 124/73 11/21/21 23:40 92 H 95 11/21/21 23:35 73 97 11/21/21 23:34 73 129/75 11/21/21 23:30 82 97 11/21/21 23:25 83 97 11/21/21 23:24 79 136/76 11/21/21 23:20 81 96 11/21/21 23:16 79 86 L 11/21/21 23:15 37.0 C 79 18 88 L 11/21/21 23:14 80 136/84 11/21/21 23:10 80 98 11/21/21 23:05 84 94 11/21/21 23:04 80 141/87 H 11/21/21 23:01 83 85 L 11/21/21 23:00 82 94 11/21/21 22:55 80 92 11/21/21 22:54 96 H 18 132/85 11/21/21 22:50 70 95 11/21/21 22:45 76 96 11/21/21 22:44 69 137/87 11/21/21 22:40 74 95 11/21/21 22:35 77 95 11/21/21 22:34 78 129/82 11/21/21 22:30 71 96 11/21/21 22:25 74 96 11/21/21 22:24 67 135/85 11/21/21 22:20 75 96 11/21/21 22:15 75 95 11/21/21 22:14 70 136/83 11/21/21 22:10 76 96 11/21/21 22:05 77 133/84 96 11/21/21 22:00 86 96 11/21/21 21:55 74 98 11/21/21 21:54 80 144/66 H 11/21/21 21:50 79 96 11/21/21 21:45 90 92 11/21/21 21:44 76 83 L 11/21/21 21:42 37.1 C 18 11/21/21 21:40 76 97 11/21/21 21:35 78 97 11/21/21 21:34 76 124/70 11/21/21 21:30 80 96 11/21/21 21:25 87 91 11/21/21 21:24 75 124/69 11/21/21 21:23 79 85 L 11/21/21 21:20 80 96 11/21/21 21:15 73 96 11/21/21 21:14 71 129/70 11/21/21 21:10 72 96 11/21/21 21:05 78 98 11/21/21 21:04 74 119/70 11/21/21 21:00 82 98 11/21/21 20:55 82 93 11/21/21 20:54 72 122/72 11/21/21 20:50 87 95 11/21/21 20:45 79 96 04/06/22 20:44 76 120/71 11/21/21 20:40 74 97 11/21/21 20:35 79 97 11/21/21 20:34 79 121/70 11/21/21 20:30 75 97 11/21/21 20:25 70 18 127/70 98 11/21/21 20:20 73 97 11/21/21 20:15 73 98 11/21/21 20:14 72 125/71 11/21/21 20:10 70 97 11/21/21 20:05 73 99 11/21/21 20:04 67 130/71 11/21/21 20:00 70 100 11/21/21 19:55 72 99 11/21/21 19:54 74 129/70 11/21/21 19:50 68 99 11/21/21 19:46 81 84 L 11/21/21 19:45 79 136/71 98 11/21/21 19:40 75 98 11/21/21 19:37 37.1 C 11/21/21 19:35 91 H 127/68 97 11/21/21 19:30 82 97 11/21/21 19:25 68 100 11/21/21 19:24 66 136/84 11/21/21 19:20 72 98 11/21/21 19:19 76 82 L 11/21/21 19:16 65 138/82 11/21/21 19:15 37.1 C 67 18 99 11/21/21 19:10 76 100 11/21/21 19:05 70 137/84 98 11/21/21 19:00 73 100 11/21/21 18:55 70 100 11/21/21 18:54 69 140/79 11/21/21 18:50 75 89 L 11/21/21 18:45 78 93 11/21/21 18:44 73 126/66 11/21/21 18:42 80 85 L 11/21/21 18:40 74 96 11/21/21 18:37 77 91 11/21/21 18:35 77 92 11/21/21 18:33 68 135/74 11/21/21 18:31 80 138/80 11/21/21 18:30 75 94 11/21/21 18:29 70 137/67 11/21/21 18:27 73 134/74 11/21/21 18:25 72 159/81 H 99 11/21/21 18:23 69 144/82 H 11/21/21 18:21 69 148/81 H 11/21/21 18:20 72 97 11/21/21 18:19 73 153/70 H 11/21/21 18:18 80 91 11/21/21 18:17 77 153/76 H 11/21/21 18:15 75 97 11/21/21 18:10 72 98 11/21/21 18:05 85 99 11/21/21 18:04 85 92 11/21/21 18:00 77 99 11/21/21 17:55 80 96 11/21/21 16:58 69 131/81 Pain Intensity Abdomen: Pain Intensity: 6 Transfer of Care Handoff Completed per policy Notes Mental Status: alert / awake / arousable and participated in evaluation Nausea / Vomiting: adequately controlled Pain: adequately controlled Airway Patency, RR, SpO2: stable & adequate BP & HR: stable & adequate Hydration State: stable & adequate Neuraxial Anesthesia: was administered and sensory block is resolving Anesthetic Complications: no major complications apparent and Pt Satisfied with anesthetic care
[2021-11-22] MEDS: ACETAMINOPHEN 1000 MG/100 ML IV IV PRN (17:04)
[2021-11-22] MEDS ORDERED: ARISTA ABSORBABLE HEMOSTAT 3GM TOP ONE (17:10)
[2021-11-22] MEDS: NALBUPHINE HCL INJ 10 MG/ML AMP IV PRN ×2 (18:45→19:12)
[2021-11-22] MEDS: DOCUSATE SODIUM 100 MG CAP PO SCH (21:22)
[2021-11-22] MEDS: SIMETHICONE 80 MG CHEW PO SCH (21:22)
[2021-11-23] MEDS: ACETAMINOPHEN 1000 MG/100 ML IV IV PRN (03:20)
[2021-11-23] MEDS: KETOROLAC 30 MG/ML VIAL IV PRN (06:39)
[2021-11-23 06:48] LABS: Hematocrit (blood only) 24.5 % (37-47); Mean Corpuscular Hgb Conc 32.7 g/dL (32-36); Mean Corpuscular Volume 85.7 fL (80-100); Mean Platelet Volume 12.2 fL (7.4-10.4); Platelet Count 174 K/uL (130-400); RDW Coefficient of Variation 14.1 % (11.5-14.5); RDW Standard Deviation 43.7 fL (36.4-46.3); Red Blood Count 2.86 M/uL (4.2-5.4); White Blood Count 13.15 K/uL (4.8-10.8)
[2021-11-23] MEDS: LEVOTHYROXINE SODIUM 100 MCG TABLET PO SCH (06:50)
--- NOTE | 2021-11-23 06:57 | Obstetrical Progress Note ---
Date of Service November 23, 2021 Assessment & Plan (1) Cephalopelvic disproportion: S/P , POD#1 routine postop care today (2) Chronic hypertension affecting : Continue propranolol (3) Hypothyroidism during : Continue levothyroxine (4) Insulin controlled gestational diabetes mellitus (GDM) during : Reassess ; presume resolving Subjective Voiding: sauceda catheter in place Passing Gas:: No Diet Tolerance:: clear liquids Lochia:: Small Feeding Type:: breast feeding Physical Exam Constitutional WD/WN, vitals as above Eyes PERRL, conjunctivae normal, anicteric sclerae Neck normal visual inspection Respiratory normal respiratory effort and able to speak in complete sentences; no respiratory distress and no labored breathing Cardiovascular Rate/Rhythm: regular rate and regular rhythm Extremities: no edema Chest (Breasts) Chest: normal inspection of chest Gastrointestinal (Abdomen) Inspection/Auscultation: abdomen normal to inspection Soft, postgravid Incision c/d/i with surgical glue Psychiatric A+Ox3, euthymic affect Genitourinary OB Exam Abdomen: + fundal height Fundus: + firm and + relation to umbilicus (fundus just below umbilicus); not tender Results & Data ([facility]) Vital Signs (Past 12 Hours) Vital Signs Temp Pulse Resp BP Pulse Ox 11/23/21 05:20 18 96 11/23/21 04:00 18 95 11/23/21 03:25 98.4 F 94 H 18 126/84 98 11/23/21 02:10 18 98 11/23/21 01:10 18 98 11/23/21 00:15 18 94 11/22/21 23:10 99.0 F 78 18 133/86 98 11/22/21 22:10 18 95 11/22/21 21:15 98.8 F 78 18 132/81 96 11/22/21 19:15 16 94
[2021-11-23 07:17] LABS: Basophils # (auto) 0.01 K/uL (0-0.2); Basophils % (auto) 0.1 %; Eosinophils # (auto) 0.09 K/uL (0-0.5); Eosinophils % (auto) 0.7 %; Immature Granulocytes # (auto) 0.04 K/uL (0.00-0.02); Immature Granulocytes % (auto) 0.3 %; Lymphocytes # (auto) 1.88 K/uL (1.2-3.4); Lymphocytes % (auto) 14.3 %; Monocytes # (auto) 0.94 K/uL (0.11-0.59); Monocytes % (auto) 7.1 %; Neutrophils # (auto) 10.19 K/uL (1.4-6.5); Neutrophils % (auto) 77.5 %
[2021-11-23] MEDS: SIMETHICONE 80 MG CHEW PO SCH ×4 (08:51→19:27)
[2021-11-23] MEDS: LORATADINE 10 MG TAB PO SCH (08:51)
[2021-11-23] MEDS: PRENATAL VITAMIN 1 TAB PO SCH (08:51)
[2021-11-23] MEDS: DOCUSATE SODIUM 100 MG CAP PO SCH ×2 (08:51→21:07)
[2021-11-23] MEDS: PROPRANOLOL HCL 20 MG TAB PO SCH (09:00)
[2021-11-23] MEDS ORDERED: KETOROLAC 30 MG/ML VIAL IV PRN (09:30)
[2021-11-23] MEDS ORDERED: diphenhydrAMINE 50 MG/ML VIAL IV PRN (09:30)
[2021-11-23] MEDS ORDERED: ONDANSETRON INJ 2 MG/ML 2 ML VIAL IV PRN (09:30)
[2021-11-23] MEDS ORDERED: diphenhydrAMINE Capsule 25 MG CAP PO PRN (09:30)
[2021-11-23] MEDS ORDERED: MEPERIDINE HCL 50 MG/ML CARP IV PRN (09:30)
[2021-11-23] MEDS ORDERED: PROMETHAZINE HCL 25 MG in SODIUM CHLORIDE 0.9% 50 ML IV PRN (09:30)
[2021-11-23] MEDS: IBUPROFEN 600 MG TAB PO PRN ×4 (10:20→23:28)
[2021-11-23] MEDS: oxyCODONE/ACETAMINOPHEN 5mg/325mg TAB PO PRN ×5 (10:21→23:28)
[2021-11-24] MEDS: oxyCODONE/ACETAMINOPHEN 5mg/325mg TAB PO PRN ×4 (04:49→19:36)
[2021-11-24] MEDS: IBUPROFEN 600 MG TAB PO PRN ×4 (04:49→18:45)
[2021-11-24] MEDS: LEVOTHYROXINE SODIUM 100 MCG TABLET PO SCH (06:13)
[2021-11-24 06:35] LABS: Hematocrit (blood only) 23.2 % (37-47); Hemoglobin 7.4 g/dL (12.0-16.0)
[2021-11-24] MEDS: SIMETHICONE 80 MG CHEW PO SCH ×5 (08:33→22:36)
[2021-11-24] MEDS: FERROUS SULFATE 325 MG TAB PO SCH (08:34)
[2021-11-24] MEDS: PRENATAL VITAMIN 1 TAB PO SCH (08:34)
[2021-11-24] MEDS: DOCUSATE SODIUM 100 MG CAP PO SCH ×2 (08:34→22:33)
[2021-11-24] MEDS: LORATADINE 10 MG TAB PO SCH (08:35)
[2021-11-24] MEDS: PROPRANOLOL HCL 20 MG TAB PO SCH (08:36)
--- NOTE | 2021-11-24 08:41 | Obstetrical Progress Note ---
Date of Service November 24, 2021 Assessment & Plan (1) Encounter for care and examination after delivery: Day 2 s/p LTCS. Doing well. Routine care Subjective Ambulation: ambulating normally Voiding: no voiding problems Passing Gas:: Yes Diet Tolerance:: regular diet Lochia:: Moderate Feeding Type:: breast feeding Physical Exam Constitutional WD/WN, vitals as above Respiratory normal respiratory effort; no respiratory distress and no labored breathing Gastrointestinal (Abdomen) Inspection/Auscultation: abdomen normal to inspection; abdomen not distended Percussion/Palpation: abdomen soft; abdomen nontender, no guarding and abdomen not rigid Incision C/D/I Genitourinary OB Exam Abdomen: + fundal height Fundus: + firm and + relation to umbilicus (Below); not tender or not boggy Results & Data ([facility]) Vital Signs (Past 12 Hours) Vital Signs Temp Pulse Resp BP Pulse Ox 11/23/21 23:20 36.7 C 87 18 149/87 H 94
[2021-11-25] MEDS: IBUPROFEN 600 MG TAB PO PRN ×2 (04:19→12:22)
--- NOTE | 2021-11-25 06:44 | Obstetrical Progress Note ---
Date of Service November 25, 2021 Assessment & Plan (1) Encounter for care and examination after delivery: stable, doing well overall but with bp and abreu, will check more labs. she wants to go home if able as feels she will get better rest. enc ambulation. pain meds. we will see how morning goes and plan dc later this am if baby ok to go. breast, rh pos, ri. pt aware of hgb and need for iron and aware of need for 1 wk bp check. Day #:: 3 Subjective Ambulation: ambulating normally Voiding: no voiding problems Passing Gas:: Yes Diet Tolerance:: regular diet Lochia:: Small Feeding Type:: breast feeding pain control adequate with pain meds. abreu overnight and some nausea. feels might be congested this am. bps noted and reviewed with patient. Constitutional: + as per Subjective / HPI Physical Exam Constitutional WD/WN, vitals as above Respiratory normal respiratory effort, lungs clear to auscultation Cardiovascular Rate/Rhythm: regular rate and regular rhythm Gastrointestinal (Abdomen) Inspection/Auscultation: abdomen normal to inspection and + abdominal surgical incision (c/d/i with dermabond) Percussion/Palpation: abdomen soft Fundus firm 1 down, mild appropriate tenderness. no rebound or guarding. Musculoskeletal nt calves tr edema Neurologic grossly normal Psychiatric A+Ox3, euthymic affect Results & Data ([facility]) Vital Signs (Past 12 Hours) Vital Signs Temp Pulse Pulse Resp BP Pulse Ox 11/25/21 04:48 98.8 F 74 20 154/90 H 98 11/24/21 21:00 77 18 134/86 11/24/21 19:30 98.8 F 92 H 92 H 18 150/97 H 98
[2021-11-25] MEDS: oxyCODONE/ACETAMINOPHEN 5mg/325mg TAB PO PRN ×2 (06:47→12:22)
[2021-11-25 07:16] LABS: Nucleated RBC # (auto) 0.08 K/uL (0-0); Nucleated RBC % (auto) 0.7 %
[2021-11-25 07:33] LABS: Hematocrit (blood only) 26.2 % (37-47); Hemoglobin 8.4 g/dL (12.0-16.0); Mean Corpuscular Hemoglobin 27.9 pg (25-34); Mean Corpuscular Hgb Conc 32.1 g/dL (32-36); Mean Platelet Volume 11.1 fL (7.4-10.4); Platelet Count 290 K/uL (130-400); RDW Coefficient of Variation 14.4 % (11.5-14.5); RDW Standard Deviation 45.1 fL (36.4-46.3); Red Blood Count 3.01 M/uL (4.2-5.4); White Blood Count 11.84 K/uL (4.8-10.8)
--- NOTE | 2021-11-25 07:37 | Obstetrical Progress Note ---
Date of Service November 25, 2021 Subjective Ambulation: ambulating normally Voiding: no voiding problems Diet Tolerance:: regular diet Lochia:: Small Feeding Type:: breast feeding Results & Data ([facility]) Vital Signs (Past 12 Hours) Vital Signs Temp Pulse Resp BP Pulse Ox 11/25/21 04:48 98.8 F 74 20 154/90 H 98 11/24/21 21:00 77 18 134/86
[2021-11-25 08:06] LABS: Albumin Globulin Ratio 0.9 (0.9-2); Albumin Level 2.7 gm/dl (3.4-5.0); BUN Creatinine Ratio 14.5 (10-20); Bilirubin,Total 0.2 mg/dl (0.2-1.0); Creatinine Clr Calc Pharmacy 142.4 ml/min; Est GFR (African American) 137.9 ml/min; Globulin 2.9 gm/dl (2.5-4.0); Potassium 3.9 mmol/L (3.5-5.1); Total Protein 5.6 gm/dl (6.0-8.3)
[2021-11-25 08:14] LABS: Basophils # (auto) 0.01 K/uL (0-0.2); Basophils % (auto) 0.1 %; Eosinophils # (auto) 0.14 K/uL (0-0.5); Eosinophils % (auto) 1.2 %; Immature Granulocytes # (auto) 0.17 K/uL (0.00-0.02); Immature Granulocytes % (auto) 1.4 %; Lymphocytes # (auto) 2.19 K/uL (1.2-3.4); Lymphocytes % (auto) 18.5 %; Monocytes # (auto) 0.56 K/uL (0.11-0.59); Monocytes % (auto) 4.7 %; Neutrophils # (auto) 8.77 K/uL (1.4-6.5); Neutrophils % (auto) 74.1 %; Polychromasia 1+
[2021-11-25] MEDS: DOCUSATE SODIUM 100 MG CAP PO SCH (08:53)
[2021-11-25] MEDS: PRENATAL VITAMIN 1 TAB PO SCH (08:53)
[2021-11-25] MEDS: FERROUS SULFATE 325 MG TAB PO SCH (08:53)
[2021-11-25] MEDS: SIMETHICONE 80 MG CHEW PO SCH ×2 (08:53→12:22)
[2021-11-25] MEDS: PROPRANOLOL HCL 20 MG TAB PO SCH (08:54)
[2021-11-25] MEDS: LORATADINE 10 MG TAB PO SCH (08:54)
[2021-11-25] MEDS: LEVOTHYROXINE SODIUM 100 MCG TABLET PO SCH (10:12)
--- NOTE | 2021-11-27 16:04 | Discharge Summary ---
Date of Service November 27, 2021 Admission HPI Per Admitting Provider Pt is a G1 female at 38 4/7 weeks presenting to the Labor and delivery for induction of labor. Pt has received routine care in [facility] OB clinic. has been complicated by ICSI, Breech presentation with successful version on 11/14, CHTN treated with ASA amd propranolol, AMA, Hypothyroid with TSH [id number], GDM on insulin, and Polyhydramnios. Pt reports good movement, no gush of fluid, some dark blood from examination yesterday, and possibly some weak contractions that she has noticed intermittently. Pt would like to receive an epidural when able. Pt did not take her propranolol this morning and BP has been running a little high due to this and being anxious about delivery. Otherwise, pt was to receive a sauceda bulb yesterday for cervical ripening, however, a bed was not available for her last night, so this was not done. Pt has no other complaints or concerns at this time. OB Labs: Blood Type O Positive 11/14/21 Antibody Screen NEGATIVE 11/14/21 Hemoglobin 10.7 g/dL (12.0-16.0) L 11/14/21 Hematocrit 32.0 % (37-47) L 11/14/21 Mean Corpuscular Volume 85.8 fL (80-100) 11/14/21 Platelet Count 245 K/uL (130-400) 11/14/21 Rubella IgG Antibody Immune (Immune) 05/31/21 Rapid Plasma Reagin Nonreactive (Nonreactive) 05/31/21 Hepatitis B Surface Antigen Neg (Neg) 05/31/21 HIV (1&2) Ab and P24 Ag, 4th Gener Neg (Neg) 05/31/21 Glucose 1 Hour 50 gm Load 207 mg/dl (70-130) H 06/22/21 Maternal Serum Alpha Fetoprotein 38.3 ng/mL 06/22/21 OB Optional Labs: Chlamydia trachomatis RNA NOT DETECTED (NOT DETECTED) 05/31/21 Neisseria gonorrhoeae RNA NOT DETECTED (NOT DETECTED) 05/31/21 Thyroid Stimulating Hormone (TSH) 0.969 uIu/ml (0.300-4.500) 10/25/21 Alpha Fetoprotein Triple Screen SEE NOTE 06/22/21 Discharge Data Consultations 11/21/21 08:39 Consult Anesthesiology Stat Procedures Performed Operation Date: 11/22/21 12:20 Actual Procedures p Section in LD for living male child at 1444(Bilateral) - Ese Kay MD Hospital Course (1) Encounter for care and examination after delivery: Patient had failure to progress in labor and was delivered by section, uncomplicated. stable, doing well overall but with bp and abreu, will check more labs. she wants to go home if able as feels she will get better rest. enc ambulation. pain meds. we will see how morning goes and plan dc later this am if baby ok to go. breast, rh pos, ri. pt aware of hgb and need for iron and aware of need for 1 wk bp check. Coding Level of Care Code None Diagnoses Encounter for care and examination after delivery Z39.2
== END 2021-11-25 14:20 | disposition home or self-care (01) | DRG 787 ==
LOC: 4S1 07:41 → 4E2 11-22 18:08

== ENCOUNTER 2025-02-10 13:08 | Inpatient (IN) ==
--- NOTE | 2025-02-03 15:24 | Anesthesiology Consultation ---
Date of Service February 03, 2025 Assessment & Plan (1) Encounter for pre-operative examination: Chart Review Chart Review: carpentry supervisor initiated - BSG to anesthesiologist and OB discretion DOS (pt with gestational DM) -Infectious Disease screening: Per PAT nursing assessment on 02/03/25. No known infectious disease contacts in past 10 days or current infectious disease symptoms. No recent travel outside the country. Seen by Pediatric Cardiology 12/07/24= Patient referred for assessment due to being conceived through in vitro fertilization. Current is otherwise complicated by advanced maternal age, gestational diabetes (started on insulin approximately 1 month ago) and chronic hypertension (controlled on propranolol). Initial echocardiogram performed last month demonstrated mild degree of pulmonary valve insufficiency with aortic arch and pulmonary veins unable to be visualized well at that time. In the interim she reports suffering a fall over the weekend. Was monitored for approximately 4 hours in the emergency department and discharged home. No current complaints. Pleased to report the baby's heart appears structurally normal on today's images. At this time we do not see any contraindication from a cardiac standpoint to her delivery at [facility] as she is currently planning. Further follow-up in the cardiology clinic can be on an as-needed basis. imaging is not required but could of course be considered should there be any clinical concerns. As always, the pediatric cardiology team at [facility] could be consulted at any time should there be any concern about the baby's cardiovascular status. 11/22/21= Done under SAB at L2-3 with 1 attempt. (Epidural pulled and spinal placed) History Surgery Operation Date: 02/11/25 07:30 Proposed Procedures p Section in LD (Delivery of Baby Through Abdominal Incision) - Sherri Yousif DO s Bilateral Tubal Ligation - Sherri Yousif DO Height/Weight Height: 5 ft 4 in Weight: 85.275 kg Allergies Allergy/AdvReac Type Severity Reaction Status Date / Time Sulfa (Sulfonamide AdvReac Intermediate GI upset Verified 02/03/25 14:34 Antibiotics) Medications Home Medications Medication Instructions Recorded Confirmed Last Taken loratadine 10 mg tablet 10 mg PO DAILY 05/29/21 02/03/25 11/26/21 melatonin 3 mg capsule 3 mg PO HS PRN Insomnia 07/03/21 02/03/25 11/20/21 21:00 3 mg 21-iron fu-folic acid 1 tab PO DAILY 07/30/24 02/03/25 Unknown [ Complete] lancets 33 gauge (OneTouch Delica #150 ea 08/20/24 01/28/25 Unknown Plus Lancet) acetone (urine) test (Ketone Urine #100 ea 08/24/24 01/28/25 Unknown Test strips) blood sugar diagnostic (OneTouch #400 ea 08/24/24 01/28/25 Unknown Verio test strips) propranolol 60 mg capsule,24 60 mg PO QAM 12/01/24 02/03/25 Unknown hr,extended release pen needle, diabetic 32 gauge x #100 ea 12/20/24 01/28/25 Unknown " aspirin 81 mg tablet,delayed 81 mg PO DAILY 02/03/25 02/03/25 Unknown release cyanocobalamin (vitamin B-12) 1,000 mcg PO DAILY 02/03/25 02/03/25 Unknown 1,000 mcg tablet docusate sodium 100 mg capsule 100 mg PO BID PRN Constipation 02/03/25 02/03/25 Unknown (Colace) doxylamine succinate 25 mg tablet 25 mg PO HS PRN Sleep 02/03/25 02/03/25 Unknown (Unisom (doxylamine)) insulin NPH isoph U-100 human 100 48 unit subcut QPM 02/03/25 02/03/25 Unknown unit/mL (3 mL) subcutaneous pen (Novolin N FlexPen) levothyroxine 100 mcg tablet 100 mcg PO QAM 02/03/25 02/03/25 Unknown Past Medical History Medical History ADHD GERD (gastroesophageal reflux disease) Gestational diabetes History of anxiety History of depression HPV in female Hx of ovarian cyst + ovarian fibroids Hypertension chronic Hypothyroidism IBS (irritable bowel syndrome) Past Family History Family History Mother Hypothyroidism Hypertension Father Waqar's disease Uncle Stomach cancer Other No family history of adverse response to anesthesia Denies family history of Ovarian cancer Breast cancer Colorectal cancer Past Surgical History Surgical History H/O adenoidectomy History of appendectomy History of colposcopy History of esophagogastroduodenoscopy (EGD) S/P section x 1 S/P wisdom tooth extraction Social History Smoking Status: Never smoker Do You Dip or Chew Tobacco: No Hx Alcohol Use: No Alcohol Intake Frequency Comment: nothing during Hx Substance Use: No substance use type: does not use Testing Laboratory Results 11/30/24= TSH: 1.57 FREE T4: 1.1
[2025-02-10] MEDS: LACTATED RINGER'S 1,000 ML IV SCH (13:35)
--- NOTE | 2025-02-10 13:41 | History & Physical Report ---
Date of Service February 10, 2025 Assessment & Plan (1) Previous delivery affecting , antepartum: Plan: IUP at 38-5/7 weeks with spontaneous rupture membranes for clear fluid in early labor presents for repeat section which was scheduled for tomorrow 02/11/2025. Please see orders for further directions. Admission and Anticipated Discharge Date Admission Date: February 10, 2025 History of Present Illness Primary Care Provider: Lulú Lee DO Patient is a 39-year-old 2 para 1-0-0-1 female EDC of 02/20/2025 who presents at 38-4/7 weeks with rupture of membranes and early onset of labor. She was then the office for her routine OB visit and just prior to leaving the office she started to leak clear fluid. She was having some contractions prior to this while she was on the NST, but they have begun to get more painful. She is a planned section with bilateral salpingectomies for tomorrow 02/11/2025. complicated by chronic hypertension, macrosomia, GDM on insulin and hypothyroidism. This is also an IVF . te sting has been reassuring. GBS negative. Blood type O+. Allergies Allergy/AdvReac Type Severity Reaction Status Date / Time Sulfa (Sulfonamide AdvReac Intermediate GI upset Verified 02/10/25 11:09 Antibiotics) Home Medications Medication Instructions Recorded Confirmed Type loratadine 10 mg tablet 10 mg PO DAILY 05/29/21 02/10/25 History melatonin 3 mg capsule 3 mg PO HS PRN Insomnia 07/03/21 02/10/25 History 21-iron fu-folic acid 1 tab PO DAILY 07/30/24 02/10/25 History [ Complete] lancets 33 gauge (OneTouch Delica #150 ea 08/20/24 02/10/25 Rx Plus Lancet) acetone (urine) test (Ketone Urine #100 ea 08/24/24 02/10/25 Rx Test strips) blood sugar diagnostic (TapDogTouch #400 ea 08/24/24 02/10/25 Rx Verio test strips) propranolol 60 mg capsule,24 60 mg PO QAM 12/01/24 02/10/25 History hr,extended release pen needle, diabetic 32 gauge x #100 ea 12/20/24 02/10/25 Rx " aspirin 81 mg tablet,delayed 81 mg PO DAILY 02/03/25 02/10/25 History release cyanocobalamin (vitamin B-12) 1,000 mcg PO DAILY 02/03/25 02/10/25 History 1,000 mcg tablet docusate sodium 100 mg capsule 100 mg PO BID PRN Constipation 02/03/25 02/10/25 History (Colace) doxylamine succinate 25 mg tablet 25 mg PO HS PRN Sleep 02/03/25 02/10/25 History (Unisom (doxylamine)) insulin NPH isoph U-100 human 100 48 unit subcut QPM 02/03/25 02/10/25 History unit/mL (3 mL) subcutaneous pen (Novolin N FlexPen) levothyroxine 100 mcg tablet 100 mcg PO QAM 02/03/25 02/10/25 History Patient History Medical History ADHD GERD (gastroesophageal reflux disease) Gestational diabetes History of anxiety History of depression HPV in female Hx of ovarian cyst + ovarian fibroids Hypertension chronic Hypothyroidism IBS (irritable bowel syndrome) Surgical History H/O adenoidectomy History of appendectomy History of colposcopy History of esophagogastroduodenoscopy (EGD) S/P section x 1 S/P wisdom tooth extraction Family History Mother Hypothyroidism Hypertension Father Waqar's disease Uncle Stomach cancer Other No family history of adverse response to anesthesia Denies family history of Ovarian cancer Breast cancer Colorectal cancer Social History Smoking Status: Never smoker Second Hand Exposure: Yes (as a child); Do You Dip or Chew Tobacco: No; Hx Alcohol Use: No Hx Substance Use: No Preferred Language: Fijian Communication Ability: Effective Visual Impairment: No Limitations Kettle Cook Required: No Beliefs That Will Affect Care: None marital status: marital status details: Miguel Angel (33) [phone] Current Living Situation: Family Current Living Situation Comment: lives with spouse, child, no pets current occupational status: employed 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 @ [employer] Other Information That Helps Us Care for You: No Feels Safe at Home: Yes Safety Concerns: Feels Safe At This Time Assistive Devices: None Review of Systems All systems reviewed & are unremarkable except as noted in HPI & below Physical Exam Constitutional: WD/WN, vitals as above Psychiatric: A+Ox3, euthymic affect Genitourinary: Manual OB Exam: + cervical dilation fingertip, + cervical effacement 50%, + station -1 and + amniotic fluid (grossly ruptured) clear OB Exam Monitor Tracing: + external FHT monitor used, + external uterine monitor used, + category I and + normal FHT variability Results & Data Vital Signs (Past 12 Hours) Vital Signs Temp Resp 02/10/25 13:22 98.1 F 16 Code Status & VTE Plan VTE Prophylaxis Plan VTE Prophylaxis will be ordered: No Coding Level of Care Code 75542 INT INP/OBS CARE MIN Diagnoses Previous delivery affecting , antepartum O34.219
[2025-02-10] MEDS ORDERED: ONDANSETRON INJ 2 MG/ML 2 ML VIAL ONE ×4 (13:43→15:31)
[2025-02-10] MEDS: ONDANSETRON INJ 2 MG/ML 2 ML VIAL IV STA (13:46)
[2025-02-10] MEDS: ACETAMINOPHEN 500 MG TAB PO SCH (13:47)
[2025-02-10] MEDS: CITRIC ACID/SODIUM CITRATE 15 ML UDC PO SCH (13:47)
[2025-02-10 14:10] LABS: Hematocrit (blood only) 32.8 % (37.0-47.0); Hemoglobin 10.5 g/dl (12.0-16.0); Mean Corpuscular Hemoglobin 27.2 pg (25.0-34.0); Mean Platelet Volume 11.8 fL (9.4-12.4); Platelet Count 295 K/uL (130-400); RDW Coefficient of Variation 14.4 % (11.5-14.5); RDW Standard Deviation 43.8 fL (36.4-46.3); Red Blood Count 3.86 M/uL (4.20-5.40); White Blood Count 13.11 K/ul (4.8-10.8)
[2025-02-10] MEDS ORDERED: MoRPHine SULFATE PF 1 MG/ML 10 ML AMP/VIAL ONE (14:20)
[2025-02-10] MEDS ORDERED: PHENYLEPHRINE HCL 25 MG/250 ML NSS IV ONE (14:20)
[2025-02-10] MEDS ORDERED: OXYTOCIN 10 UNITS/ML VIAL ONE (14:20)
[2025-02-10] MEDS: ceFAZolin 2000MG 2,000 MG/15 ML SYR IV SCH (14:22)
[2025-02-10] MEDS ORDERED: LACTATED RINGER'S 1,000 ML IV SCH ×2 (14:30→17:00)
[2025-02-10] MEDS: AZITHROMYCIN 500 MG/255 ML BAG IV SCH (14:32)
[2025-02-10] MEDS ORDERED: NALOXONE HCL 0.08 MG in SYRINGE 1.8 ML IV PRN (15:04)
[2025-02-10] MEDS ORDERED: MoRPHine SULFATE 2 MG/ML CARP IV PRN (15:04)
[2025-02-10] MEDS ORDERED: NALOXONE HCL 0.4 MG/1 ML VIAL/CARP IV PRN (15:04)
[2025-02-10] MEDS ORDERED: NALBUPHINE HCL INJ 10 MG/ML AMP IV PRN (15:04)
[2025-02-10] MEDS ORDERED: ePHEDrine sulfate 50 MG/ML AMP IV PRN (15:04)
[2025-02-10] MEDS ORDERED: MEPERIDINE HCL 25 MG/ML CARP/VIAL IV PRN (15:04)
[2025-02-10] MEDS ORDERED: diphenhydrAMINE 50 MG/ML VIAL IV PRN (15:04)
[2025-02-10] MEDS ORDERED: HYDROmorphone INJ 0.5 MG/0.5 ML SYR IV PRN (15:04)
[2025-02-10] MEDS ORDERED: NALOXONE HCL 1 MG in SODIUM CHLORIDE 0.9% 1,000 ML IV PRN (15:04)
[2025-02-10] MEDS ORDERED: MoRPHine SULFATE PF 1 MG/ML 10 ML AMP/VIAL INT SPINAL ONE (15:04)
[2025-02-10] MEDS ORDERED: oxyCODONE HCL IR 5 MG TAB (IMMEDIATE RELEASE) PO PRN (15:04)
--- NOTE | 2025-02-10 15:04 | Anesthesiology Consultation ---
Date of Service February 10, 2025 Assessment & Plan Chart Review Chart Review: Acceptable Risk for Surgery and Patient NOT seen in Pre Admission Testing Consults Requested none ASA ASA2 Proposed Anesthesia Anesthesia Type: Spinal (+intrathecal narcotics) Risk / Benefits Reviewed With: PT / POA / Parent / Guardian, Accepts Plan and Informed Consent Obtained History Surgery Operation Date: 02/10/25 14:30 Proposed Procedures p Section in LD - Lizbet Cabezas MD, FACOG Operation Date: 02/11/25 07:30 Proposed Procedures p Section - Sherri Yousif DO s with Bilateral Tubal Ligation - Sherri Yousif DO Height/Weight Height: 5 ft 4 in Weight: 85.275 kg Allergies Allergy/AdvReac Type Severity Reaction Status Date / Time Sulfa (Sulfonamide AdvReac Intermediate GI upset Verified 02/10/25 11:09 Antibiotics) Medications Home Medications Medication Instructions Recorded Confirmed Last Taken loratadine 10 mg tablet 10 mg PO DAILY 05/29/21 02/10/25 1 Day Ago ~02/09/25 melatonin 3 mg capsule 3 mg PO HS PRN Insomnia 07/03/21 02/10/25 1 Day Ago ~02/09/25 21-iron fu-folic acid 1 tab PO DAILY 07/30/24 02/10/25 Unknown [ Complete] lancets 33 gauge (Juice In The CityTouch Delica #150 ea 08/20/24 02/10/25 Unknown Plus Lancet) acetone (urine) test (Ketone Urine #100 ea 08/24/24 02/10/25 Unknown Test strips) blood sugar diagnostic (OneTouch #400 ea 08/24/24 02/10/25 Unknown Verio test strips) propranolol 60 mg capsule,24 60 mg PO QAM 12/01/24 02/10/25 Unknown hr,extended release pen needle, diabetic 32 gauge x #100 ea 12/20/24 02/10/25 Unknown 32" aspirin 81 mg tablet,delayed 81 mg PO DAILY 02/03/25 02/10/25 1 Day Ago release ~02/09/25 cyanocobalamin (vitamin B-12) 1,000 mcg PO DAILY 02/03/25 02/10/25 1 Day Ago 1,000 mcg tablet ~02/09/25 docusate sodium 100 mg capsule 100 mg PO BID PRN Constipation 02/03/25 02/10/25 1 Day Ago (Colace) ~02/09/25 doxylamine succinate 25 mg tablet 25 mg PO HS PRN Sleep 02/03/25 02/10/25 1 Day Ago (Unisom (doxylamine)) ~02/09/25 insulin NPH isoph U-100 human 100 48 unit subcut QPM 02/03/25 02/10/25 1 Day Ago unit/mL (3 mL) subcutaneous pen ~02/09/25 (Novolin N FlexPen) levothyroxine 100 mcg tablet 100 mcg PO QAM 02/03/25 02/10/25 1 Day Ago ~02/09/25 Active Medications Generic Name Dose Route Start Last Admin Trade Name Delfinoq PRN Reason Stop Dose Admin Acetaminophen 1,000 mg 02/10/25 06:00 02/10/25 13:47 Acetaminophen 500 Mg Tab PO 02/10/25 18:00 1,000 mg PREOP ALFREDO Administration Citric Acid/Sodium Citrate 30 ml 02/10/25 06:00 02/10/25 13:47 Citric Acid/Sodium Citrate 15 Ml Udc PO 02/10/25 18:00 30 ml PREOP ALFREDO Administration Cefazolin Sodium 2,000 mg in 15 mls @ 3.75 mls/min 02/10/25 06:00 02/10/25 14:22 Ancef 2000mg IV 02/11/25 05:59 3.75 mls/min PREOP ALFREDO Administration Protocol Azithromycin 500 mg in 255 mls @ 127.5 mls/hr 02/10/25 06:00 02/10/25 14:32 Zithromax IV 02/11/25 05:59 127.5 mls/hr PREOP ALFREDO Administration Past Medical History Medical History ADHD GERD (gastroesophageal reflux disease) Gestational diabetes History of anxiety History of depression HPV in female Hx of ovarian cyst + ovarian fibroids Hypertension chronic Hypothyroidism IBS (irritable bowel syndrome) Exercise / Class Metabolic Activity II 4-5 Yardwork/Stairs/Walk up hill Past Family History Family History Mother Hypothyroidism Hypertension Father Traverse's disease Uncle Stomach cancer Other No family history of adverse response to anesthesia Denies family history of Ovarian cancer Breast cancer Colorectal cancer Past Surgical History Surgical History H/O adenoidectomy History of appendectomy History of colposcopy History of esophagogastroduodenoscopy (EGD) S/P section x 1 S/P wisdom tooth extraction Past Anesthesia History No Hx of Anesthesia Complications and No Family Hx of Anesthesia Complications History of PONV No Hx of PONV and No Hx of Motion Sickness Social History Smoking Status: Never smoker Do You Dip or Chew Tobacco: No Hx Alcohol Use: No Alcohol Intake Frequency Comment: nothing during Hx Substance Use: No substance use type: does not use Physical Exam Vital Signs Last Vital Signs Temp 36.7 C 02/10/25 13:22 Resp 16 02/10/25 13:22 ENMT Mouth: no dentition abnormality Thyromental Distance: > or= 3.5 Finger Breadths Mallampati Class: II Neck normal visual inspection Respiratory normal respiratory effort Auscultation: lungs clear to auscultation bilaterally Cardiovascular Rate/Rhythm: regular rate and regular rhythm Psychiatric Orientation: alert Testing Laboratory Results 02/10/25 13:51 Blood Type O Positive 02/10/25 13:51 Antibody Screen NEGATIVE 02/10/25 13:51
[2025-02-10] MEDS ORDERED: miSOPROStoL 200 MCG TAB ONE (15:12)
[2025-02-10] MEDS ORDERED: SODIUM CHLORIDE 0.9% 1,000 ML IV SCH (15:15)
[2025-02-10] MEDS ORDERED: DC INTRASPINAL MORPHINE SCH (15:15)
[2025-02-10] MEDS ORDERED: NO NARCOTICS OR SEDATIVES SCH (15:15)
--- NOTE | 2025-02-10 16:32 | Post Operative Brief Note ---
Immediate Post Op Note Date of Surgery February 10, 2025 Pre & Post Diagnosis PRE-OP DX- IUP at term with SPROM and labor for repeat LTCS and darryl salpingectomy POST_OP DX- same plud delivery of a viable female infant Operation Date: 02/11/25 07:30 <No data on this case meets the specified criteria> I identified the patient and participated in the time-out.: Yes Procedure repeat low transverse section and bilateral salpingectomies Operation Date: 02/11/25 07:30 <No data on this case meets the specified criteria> Surgeon Lizbet Cabezas MD, FACOG Junior Technical Writer Jaycee Bazan RN Quantitative Blood Loss (QBL) 603 Findings Consistent with Post-Op Diagnosis gravid uterus at term bulky with multiple uterine fibroids bilateral ovaries and tubes grossly normal large amount of clear peritneal fluid noted upon entering the abdomen Specimens Specimen Description: 1. Placenta. 2. Cord blood. 3. Left and right Fallopian Tubes. Drains Field Catheter Anesthesia Type Spinal Complications none Disposition Accompanied Patient To Recovery: Yes Disposition: L&D
[2025-02-10] MEDS ORDERED: MAGNESIUM HYDROXIDE SUSP 30 ML UDC PO PRN (16:57)
[2025-02-10] MEDS ORDERED: BENZOCAINE 20% SPRY 85 APPLN/85 GM CAN EXT PRN (16:57)
[2025-02-10] MEDS ORDERED: SENNA 8.6 MG TAB PO PRN (16:57)
[2025-02-10] MEDS ORDERED: HYDROCORTISONE ACETATE 25 MG SUPP PR PRN (16:57)
[2025-02-10] MEDS ORDERED: DIPHTHER/TETAN/PERTUS Vaccine (Tdap, Adol/Adult) 0.5mL IM ONE (16:57)
[2025-02-10] MEDS ORDERED: CALCIUM CARBONATE 500 MG CHEWABLE TAB PO PRN (16:57)
[2025-02-10] MEDS: SIMETHICONE 80 MG CHEW PO SCH (17:05)
[2025-02-10] MEDS ORDERED: SODIUM CHLORIDE 0.9% 100 ML IV PRN (17:18)
[2025-02-10] MEDS: PROMETHAZINE 6.25 MG/50.25 ML BAG IV PRN (17:25)
[2025-02-10] MEDS: OXYTOCIN 20 UNITS/LR 1,002 ML IV SCH (18:15)
[2025-02-10] MEDS: KETOROLAC 30 MG/ML VIAL IV SCH (18:15)
[2025-02-10] MEDS: LACTATED RINGER'S 500 ML IV PRN (19:14)
--- NOTE | 2025-02-10 20:18 | Operative Report ---
Post Operative Report Pre & Post Diagnosis Operation Date: 02/11/25 07:30 <No data on this case meets the specified criteria> I identified the patient and participated in the time-out.: Yes Procedure Operation Date: 02/11/25 07:30 <No data on this case meets the specified criteria> Surgeon Lizbet Cabezas MD, FACOG Buffer Operator Jaycee Bazan RN Quantitative Blood Loss (QBL) 603 Findings Consistent with Post-Op Diagnosis Uterus was gravid and consistent with a term in size bilobar lateral ovaries and fallopian tubes were grossly normal. Although the left fallopian tube was appeared to be anatomically attached to the uterine sidewall. There was also multiple uterine fibroids including several large ones at the fundus of the uterus. Specimens Placenta to hold Drains Field catheter with clear urine at the end of the case Anesthesia Type Spinal Complications none Disposition Accompanied Patient To Recovery: Yes Disposition: L&D Indications Patient is a 39-year-old 2 para 1-0-0-1 female who presents to labor and delivery with rupture membranes after a visit at the office. She is scheduled for repeat section on 02/11/2025. complicated by IVF gestational diabetes on insulin and LGA fetus. She is also requesting permanent sterilization with her section. Description of Procedure After patient received adequate spinal anesthesia. She was prepped and draped in usual sterile fashion. Low transverse skin incision was made the scalpel and carried the fascia with the same scalpel. The fascial incision was then extended with Dimas scissors and the edges were grasped with Carmel clamps and the underlying rectus muscles were bluntly sharply dissected off of the ov erlying fascia. The peritoneum was entered bluntly there was a large amount of serous fluid noted upon entering the abdomen. The rectus muscles were divided in the midline with blunt dissection. The bladder was taken down off the anterior surface of the uterus and placed behind the bladder blade. The lower uterine segment was entered with a scalpel and extended transversely by stretching the incision in a cephalad and caudad direction. Membranes were ruptured for clear fluid. It was delivered from the vertex presentation with moderate fundal pressure and assistance from a Kiwi vacuum which guided the head up to the uterine incision. The rest of the infant delivered easily. The was vigorous crying and moving all 4 limbs. The cord was clamped and cut and the was handed off to Dr. Santillan and the nursery team. Placenta was then manually removed and the uterus exteriorized with some difficulty because of multiple uterine fibroids And covered with a clean lap sponge. The uterine cavity was swept of some free maintain membranes and the uterine cavity was clear of any retained tissue. The uterus was then closed in 2 layers in a running locking imbricating fashion. Attention was then turned to the fallopian tubes the right fallopian tube was identified and followed to its fimbriated end a LigaSure device was then used to remove the tube in its entirety. Hemostasis was noted to be excellent. The left fallopian tube here to be anatomically adherent at the fimbriated end of the tube. Blunt and sharp dissection was used with the Bovie to separate the fallopian tube from the uterus. LigaSure was then used to remove the tube in its entirety. Hemostasis again was noted to be excellent. The posterior cul-de-sac was suctioned for small amount of blood. The uterine incision and tubal sites were examined once more and continue to have excellent hemostasis the uterus was then placed back inside the abdominal cavity. The gutters were explored and found to be free of any clot or fluid the salpingectomy sites continue to have excellent hemostasis as did the uterine incision. The rectus muscle on the right had to be divided to get the uterus out of the abdomen and this was first reapproximated with 0 Monocryl the rectus muscles were then brought together on the midline with 0 Monocryl and individual stitches. The fascia was closed in a running fashion with 0 Vicryl. After irrigating the subcutaneous layer the skin edges were reapproximated with a subcuticular stitch of 4-0 Vicryl. Urine was clear at the end of the case mother and infant were doing well after delivery. I attest to the content of the Intraoperative Record and any orders documented therein. Any exceptions are noted below. OB Procedure Charges [id number] Add on Tubal for C/S (bilateral salpingectomies)
[2025-02-10] MEDS: DOCUSATE SODIUM 100 MG CAP PO SCH (21:30)
[2025-02-10] MEDS: ONDANSETRON INJ 2 MG/ML 2 ML VIAL IV PRN (21:32)
[2025-02-11] MEDS: ACETAMINOPHEN 325 MG TAB PO SCH
--- NOTE | 2025-02-11 05:23 | Obstetrical Progress Note ---
Date of Service February 11, 2025 Assessment & Plan (1) examination following delivery: (2) Hypothyroid in , antepartum: (3) Gestational diabetes: Plan Pt is 39 yo post- day 1 s/p CS at 38w5d. Pt is s/p BTL. was complicated by insulin controlled GDM, AMA, and hypothyroidism. Pt continues on sauceda with reduced urine output despite LR mIVF maricel night. - Remove sauceda when urine output improves. - Encourage being out of bed and ambulation - Encourage breast feeding - Pain control with tylenol, ibuprofen and Dilaudid - Anticipate DC 02/12 Admission and Anticipated Discharge Date Admission Date: February 10, 2025 Supervising Physician Co-Signing Physician Notes Resident Physician Supervision Note: I interviewed and examined the patient. Discussed with Dr. Charles and agree with findings and plan as documented in the note. Any exceptions or clarifications are listed here: [None] Documented By: Lizbet Cabezas MD, FACOG Subjective Pt is 39 yo post- day 1 s/p CS at 38w5d. Pt is s/p BTL Ambulation:none since delivery Voiding:sauceda in place, small amount of concentrated urine Passing gas: yes BM: no Diet tolerance:regular diet Lochia:bloody, no clots Feeding type: breast, formula supplement Current pain level: 5-6 /10 improved with ibuprofen and dilaudid Pt reports minimal sleep overnight and very fatigued this morning. Pt continues with nausea and limited appetite. No vomiting. Pt reports episode of SOB at rest overnight, resolved without intervention. Denies PUENTE, dizziness, CP, V/D, LE pain/swelling. Review of Systems Review of Systems: As per HPI Physical Exam Constitutional: WD/WN, vitals as above Respiratory: normal respiratory effort, lungs clear to auscultation Cardiovascular: RRR, no murmur, no edema Gastrointestinal (Abdomen): normal bowel sounds, soft, nontender, no hepatosplenomegaly Uterine fundus firm and at 2 cm below level of umbilicus Skin: Lower abdominal incision is clean, dry and well approximated Neurologic: PERRL, EOMI, accommodation nl, no face palsy, no dysarthria Moving all 4 extremities on command Psychiatric: A+Ox3, euthymic affect Results & Data Vital Signs (Past 12 Hours) Vital Signs Temp Pulse Pulse Resp BP BP Pulse Ox 02/11/25 05:00 18 97 02/11/25 04:00 16 95 02/11/25 03:00 16 96 02/11/25 02:00 16 95 02/11/25 01:00 16 94 02/11/25 01:00 36.7 C 70 16 110/60 95 02/10/25 23:00 16 98 02/10/25 22:00 16 96 02/10/25 21:00 16 96 02/10/25 21:00 02/10/25 21:00 36.8 C 75 16 125/72 99 02/10/25 20:00 18 98 02/10/25 18:37 71 82 L 02/10/25 18:36 72 89 L 02/10/25 18:35 36.5 C 02/10/25 18:31 69 98 02/10/25 18:26 70 100 02/10/25 18:21 70 100 02/10/25 18:16 77 97 02/10/25 18:11 68 92 02/10/25 18:06 70 99 02/10/25 18:05 68 113/61 02/10/25 18:01 69 100 02/10/25 17:56 79 100 02/10/25 17:55 73 122/77 02/10/25 17:51 83 95 02/10/25 17:46 73 99 02/10/25 17:41 75 100 02/10/25 17:36 77 89 L 02/10/25 17:31 84 94 02/10/25 17:26 79 100 02/10/25 17:25 74 114/50 L 02/10/25 17:21 73 96 O2 Del Method 02/11/25 05:00 02/11/25 04:00 02/11/25 03:00 02/11/25 02:00 02/11/25 01:00 02/11/25 01:00 Room Air 02/10/25 23:00 02/10/25 22:00 02/10/25 21:00 02/10/25 21:00 Room Air 02/10/25 21:00 Room Air 02/10/25 20:00 02/10/25 18:37 02/10/25 18:36 02/10/25 18:35 02/10/25 18:31 02/10/25 18:26 02/10/25 18:21 02/10/25 18:16 02/10/25 18:11 02/10/25 18:06 02/10/25 18:05 02/10/25 18:01 02/10/25 17:56 02/10/25 17:55 02/10/25 17:51 02/10/25 17:46 02/10/25 17:41 02/10/25 17:36 02/10/25 17:31 02/10/25 17:26 02/10/25 17:25 02/10/25 17:21 Resident Activity Tracking Resident Involvement: Resident Care Provided Care Provided: Adult Hospital Medicine
[2025-02-11 06:16] LABS: Basophils # (auto) 0.01 K/uL (0.00-0.20); Basophils % (auto) 0.1 %; Eosinophils # (auto) 0.07 K/uL (0.00-0.50); Eosinophils % (auto) 0.7 %; Hematocrit (blood only) 24.3 % (37.0-47.0); Hemoglobin 7.8 g/dl (12.0-16.0); Immature Granulocytes # (auto) 0.05 K/uL (0.01-0.20); Immature Granulocytes % (auto) 0.5 %; Lymphocytes # (auto) 1.13 K/uL (1.20-3.40); Lymphocytes % (auto) 11.8 %; Mean Corpuscular Hemoglobin 27.1 pg (25.0-34.0); Mean Corpuscular Hgb Conc 32.1 g/dL (32.0-36.0); Mean Corpuscular Volume 84.4 fL (80.0-100.0); Mean Platelet Volume 11.6 fL (9.4-12.4); Monocytes # (auto) 0.93 K/uL (0.11-0.59); Monocytes % (auto) 9.7 %; Neutrophils # (auto) 7.41 K/uL (1.40-6.50); Neutrophils % (auto) 77.2 %; Platelet Count 174 K/uL (130-400); RDW Coefficient of Variation 14.2 % (11.5-14.5); RDW Standard Deviation 43.8 fL (36.4-46.3); Red Blood Count 2.88 M/uL (4.20-5.40)
[2025-02-11 06:39] LABS: Polychromasia 1+; Tear Drop Cells 1+
[2025-02-11] MEDS ORDERED: Nursing to Pharmacy Communication SCH ×2 (07:45→17:15)
[2025-02-11] MEDS: PROPRANOLOL HCL 60 MG LA CAP PO SCH (08:10)
[2025-02-11] MEDS: PRENATAL VITAMIN 1 TAB PO SCH (08:10)
[2025-02-11] MEDS: FERROUS SULFATE 325 MG TAB PO SCH (08:10)
[2025-02-11] MEDS ORDERED: HYDROmorphone INJ 0.5 MG/0.5 ML SYR IV PRN (09:04)
[2025-02-11] MEDS ORDERED: diphenhydrAMINE 50 MG/ML VIAL IV PRN (09:04)
[2025-02-11] MEDS ORDERED: PROMETHAZINE 12.5 MG/50.5 ML BAG IV PRN (09:04)
[2025-02-11] MEDS ORDERED: diphenhydrAMINE Capsule 25 MG CAP PO PRN (09:04)
[2025-02-11] MEDS: ONDANSETRON INJ 2 MG/ML 2 ML VIAL IV PRN (11:51)
[2025-02-11] MEDS: oxyCODONE HCL IR 5 MG TAB (IMMEDIATE RELEASE) PO PRN (14:50)
[2025-02-11] MEDS ORDERED: KETOROLAC 30 MG/ML VIAL IV PRN (16:58)
[2025-02-11] MEDS ORDERED: IBUPROFEN 600 MG TAB PO SCH (17:00)
[2025-02-11] MEDS: IBUPROFEN 600 MG TAB PO SCH (18:01)
[2025-02-11] MEDS: bisacodyL 5 MG TABEC PO SCH (19:52)
[2025-02-12 03:15] VITALS: RESP 16
--- NOTE | 2025-02-12 05:42 | Obstetrical Progress Note ---
Date of Service February 12, 2025 Assessment & Plan (1) examination following delivery: (2) Hypothyroid in , antepartum: (3) Gestational diabetes: Plan Pt is 39 yo post- day 1 s/p CS at 38w5d. Pt is s/p BTL. was complicated by insulin controlled GDM, AMA, and hypothyroidism. Pts sauceda was successfully removed and mIVF stopped on 02/11. Pt's urine output has returned to normal and she is eating and drinking without nausea or vomiting. - Encourage ambulation - Encourage breast feeding - Pain control with tylenol, ibuprofen and oxycodone - Anticipate DC today Admission and Anticipated Discharge Date Admission Date: February 10, 2025 Supervising Physician Co-Signing Physician Notes Resident Physician Supervision Note: I interviewed and examined the patient. Discussed with Dr. Charles and agree with findings and plan as documented in the note. Any exceptions or clarifications are listed here: POD2 s/p rCS/BTL. Had some issues w/ bloating yesterday, has ibs as well. Still a bit bloated but improved, normal bs/flatus and did have small bm yesterday. VSS, exam benign, incision c/d/i. Desires dc Documented By: Dea Galdamez MD Subjective Pt is 39 yo post- day 2 s/p CS at 38w5d. Pt is s/p BTL Ambulation:none since delivery Voiding: yes Passing gas: yes BM: yes Diet tolerance:regular diet Lochia:bloody, no clots Feeding type: breast, formula supplement Current pain level: 3-5 /10 improved with ibuprofen and oxycodone Pt is resting comfortably. Notes 3 episodes of loose stools yesterday and continued abdominal distension/bloating this morning. Nausea puente subsided and pt has been able to eat. Denies PUENTE, SOB, dizziness, CP, N/V/D, LE pain/swelling. Review of Systems Review of Systems: As per HPI Physical Exam Constitutional: WD/WN, vitals as above Respiratory: normal respiratory effort, lungs clear to auscultation Cardiovascular: RRR, no murmur, no edema Gastrointestinal (Abdomen): normal bowel sounds, soft, nontender, no hepatosplenomegaly Uterine fundus is firm and 2-3 cm below level of umbilicus Incision is clean, dry and well approximated Neurologic: PERRL, EOMI, accommodation nl, no face palsy, no dysarthria Psychiatric: A+Ox3, euthymic affect Results & Data Vital Signs (Past 12 Hours) Vital Signs Temp Pulse Resp BP BP Pulse Ox O2 Del Method 02/12/25 03:14 36.7 C 76 16 121/74 98 Room Air 02/12/25 02:12 115/59 L 02/11/25 22:40 36.6 C 92 H 20 120/47 L 100 Room Air 02/11/25 18:53 36.9 C 90 18 139/71 99 Room Air Resident Activity Tracking Resident Involvement: Resident Care Provided Care Provided: Adult Hospital Medicine
[2025-02-12 06:32] LABS: Hematocrit (blood only) 22.3 % (37.0-47.0); Hemoglobin 7.3 g/dl (12.0-16.0)
[2025-02-12] MEDS: LEVOTHYROXINE SODIUM 100 MCG TABLET PO SCH (06:44)
[2025-02-12 08:28] VITALS: PULSE 85; TEMP 98.2; O2SAT 96
[2025-02-12 11:14] VITALS: BP 121/74
[2025-02-12] MEDS ORDERED: IBUPROFEN 600 MG TAB PO PRN (16:58)
[2025-02-12] MEDS ORDERED: bisacodyL 10 MG SUPP PR PRN (16:58)
[2025-02-12] MEDS ORDERED: ACETAMINOPHEN 325 MG TAB PO PRN (22:58)
--- NOTE | 2025-02-15 12:58 | Discharge Summary ---
Date of Service February 15, 2025 Admission HPI Per Admitting Provider Patient is a 39-year-old 2 para 1-0-0-1 female EDC of 02/20/2025 who presents at 38-4/7 weeks with rupture of membranes and early onset of labor. She was then the office for her routine OB visit and just prior to leaving the office she started to leak clear fluid. She was having some contractions prior to this while she was on the NST, but they have begun to get more painful. She is a planned section with bilateral salpingectomies for tomorrow 02/11/2025. complicated by chronic hypertension, macrosomia, GDM on insulin and hypothyroidism. This is also an IVF . testing has been reassuring. GBS negative. Blood type O+. Admission Exam (Per Admitting) Constitutional WD/WN, vitals as above Psychiatric A+Ox3, euthymic affect Genitourinary Manual OB Exam: + cervical dilation + fingertip, + cervical effacement + 50%, + station + -1 and + amniotic fluid (grossly ruptured) + clear OB Exam Monitor Tracing: + external FHT monitor used, + external uterine monitor used, + category I and + normal FHT variability Discharge Data Consultations 02/10/25 13:16 Consult Anesthesiology Stat Procedures Performed Operation Date: 02/11/25 07:30 <No data on this case meets the specified criteria> Hospital Course (1) examination following delivery: (2) Hypothyroid in , antepartum: (3) Gestational diabetes: Plan Pt is 39 yo post- day 1 s/p CS at 38w5d. Pt is s/p BTL. was complicated by insulin controlled GDM, AMA, and hypothyroidism. Pts sauceda was successfully removed and mIVF stopped on 02/11. Pt's urine output has returned to normal and she is eating and drinking without nausea or vomiting. - Encourage ambulation - Encourage breast feeding - Pain control with tylenol, ibuprofen and oxycodone - Anticipate DC today Discharge Plan Discharge Items Patient Disposition: Home - Self-Care Reason For Visit: History of Section, Chronic Hypertension Discharge Diagnosis: Activity: Per Instructions section Non-emergency contact: Supervisor Braiding Call non-emergency contact if: your symptoms worsen Follow-up/Referrals: Keiter,Chino K., DO [Primary Care Provider] - Diet: Regular OB Addtl Attending Provider Instructions: ACTIVITY RECOMMENDATIONS: * Gradual return to full activity over the next 2-3 weeks. * No lifting - nothing heavier than baby over the next 2-3 weeks. * Do not engage in vigorous exercise, sexual activity or sports until cleared by your physician. * Do not drive or operate any motorized equipment until cleared by your physician. * You may shower/bathe daily. MEDICATIONS: For discomfort or pain, you may use Acetaminophen (Tylenol), Ibuprofen (Advil), or Naproxen (Aleve) following the package directions. For constipation you may use Colace following the package directions. BREAST CARE: If you are not breast feeding: * Wear a supportive bra 24 hours a day for one to two weeks. * Avoid stimulating your breasts and nipples as much as possible during the first few weeks after delivery. * When taking a shower, have the warm water hit your back, not breasts. * When your breasts feel full, apply ice packs. Usually three to four times a day helps ease the discomfort. * Take a mild pain medication (Tylenol / Motrin) when you are uncomfortable. If breast feeding: * Use breast milk to lubricate nipples. Lansinoh cream may be used for sore nipples. You do not need to remove cream prior to breast feeding. If using a different brand of cream, check the label for directions regarding removal of cream prior to nursing. * Wear a supportive bra. * If having problems with breasts or breast feeding, call a clinical documentation consultant or your health care provider. SPECIAL CARE INSTRUCTIONS: When you are discharged from the hospital, it is important for you to follow the instructions listed below: * During the first week at home, you should be able to care for yourself and your baby. In addition, the usual light household activities are encouraged. * Limit your activities to the way you feel. Do not try to clean the house or move furniture. Be sensible. * If you actively engage in sports and have done so up until the time of your delivery, you may resume these activities as soon as you feel able. This may take up to one month or even longer. Use good judgment. * Continue to take your vitamins for at least six weeks after the of your baby. * Your diet need not be limited unless you were on a special diet before your delivery. Breast-feeding mothers need around 2500 calories per day and at least 64-80 ounces of fluid per day (8 to 10 glasses). * You should eat foods from the four major food groups. Crash diets or fad diets are to be avoided. Eating lean meats, fresh fruits and vegetables, low-fat dairy products, high fiber foods and a regular exercise program, will help you get back to your pre- weight without putting your health at risk. * Constipation is sometimes a problem after delivery. Take a mild laxative as needed. If breast feeding, Milk of Magnesia is acceptable to use. You may use a suppository or Fleets enema. * A daily shower or tub bath is suggested. Wash incision daily with warm soapy water and pat dry. It doesn't need to be covered unless drainage is present. * A bloody vaginal discharge will usually continue until around four weeks . A small amount of bleeding may continue for as long as six weeks. Vaginal discharge changes from the bright red bleeding after delivery to pink then brownish and finally yellowish-pink before becoming white and disappearing. * Bleeding may increase with activity. Your first period may come in 4-8 we eks. If you are breast feeding, your period may be delayed even longer. * Hustler (sex) can begin whenever both you and your partner feel comfortable and do not have any form of genital infection. It is recommended that you wait at least six weeks for internal and external healing to occur. If you have questions, please talk to your health care practitioner. A condom should be used to prevent infection and . * Foreplay, gentle intercourse and lubrication is very important the first several times to prevent pain. A water-based lubricant such as K-Y jelly or Astroglide may be used. * If you have RH negative blood and your baby is RH positive, you will receive RHOGAM by injection prior to discharge. The nurse will give you a card to keep with you that has the date and place that you received RHOGAM after delivery. * During your care, you had a Rubella screen done to check for the presence of rubella antibodies in your blood. If your test was negative, you will receive a Rubella vaccine prior to discharge. This vaccine may cause a fever, soreness at the injection site and flu-like symptoms. If these symptoms persist, notify your health care practitioner. is not advised for one month after a Rubella vaccine. * Verbalizes understanding of car seat law as reviewed with patient nursing. * Car Seat hand-out given and reviewed with patient by nursing. * Shaken baby information reviewed with patient by nursing. Call you doctor if: * Heavy bleeding (saturating several pads an hour) or passing clots the size of your fist. * A fever >101 degrees F (38.3 degrees C) on two occasions four hours apart and/or chills. * Unusual pain in the pelvic or vaginal areas. * Call the doctor for any increased redness, drainage or swelling around the incision and any pain unrelieved by prescribed pain medication. * "Baby Blues" lasting longer than two weeks. If you have any questions or concerns, call your health care practitioner at . FOLLOW UP VISIT: * Please call the office at to schedule a 6 week examination. It is important you keep this appointment. It is important for you to make arrangements for either yearly or twice yearly check-ups thereafter. Pending Studies at Discharge: No Stand-Alone Forms: My [facility], Smoking Cessation Medications and DC Order Prescriptions: New oxycodone 5 mg Tablet 5 - 10 mg PO Q3H PRN (Reason: pain) Qty: 14 0RF Continued loratadine 10 mg tablet 10 mg PO DAILY melatonin 3 mg capsule 3 mg PO HS PRN (Reason: Insomnia) propranolol 60 mg capsule,extended release 24 hr 60 mg PO QAM 21-iron fu-folic acid [ Complete] 1 tab PO DAILY cyanocobalamin (vitamin B-12) 1,000 mcg Tablet 1,000 mcg PO DAILY Patient Comments: unsure of dose docusate sodium [Colace] 100 mg Capsule 100 mg PO BID PRN (Reason: Constipation) Unisom (doxylamine) 25 mg Tablet 25 mg PO HS PRN (Reason: Sleep) levothyroxine 100 mcg tablet 100 mcg PO QAM Discontinued (DME) OneTouch Verio test strips Strip See Rx Instructions .MEDSUPPLY Qty: 400 1RF Rx Instructions: check blood sugars 4 times a day (DME) Ketone Urine Test Strip See Rx Instructions .MEDSUPPLY Qty: 100 7RF Rx Instructions: As directed to check ketones in urine once a day in the morning (DME) pen needle, diabetic 32 gauge x 5/32" needle See Rx Instructions miscellaneous .MEDSUPPLY Qty: 100 3RF Rx Instructions: As directed to use with insulin pen (DME) lancets [OneTouch Delica Plus Lancet] 33 gauge misc See Rx Instructions .MEDSUPPLY Qty: 150 7RF Rx Instructions: As directed check blood sugars 4 times a day aspirin [Aspir-81] 81 mg Tablet,Delayed Release (Dr/Ec) 81 mg PO DAILY Novolin N FlexPen 100 unit/mL (3 mL) insulin pen 48 unit subcut QPM Discharge Orders: Discharge Order (Routine); Ordered 02/12/25 Ordered By: Taylor Marcelo/Other Patient Handouts: Understanding Deep Vein Thrombosis, Depression Admission Data Admit Date/Time: 02/10/25 13:08 Attending Provider: Lizbet Cabezas Admit Provider: Lizbet Cabezas Primary Care Provider: Lulú Lee Other Providers: Taylor Charles; Dea Galdamez Other Interventions: Discharge Summary Assessment (RN) Last Done: 02/12/25 11:12 Supervising Physician Co-Signing Physician Notes Resident Physician Supervision Note: I interviewed and examined the patient. Discussed with Dr. Charles and agree with findings and plan as documented in the note. Any exceptions or clarifications are listed here: POD2 s/p rCS/BTL. Had some issues w/ bloating yesterday, has ibs as well. Still a bit bloated but improved, normal bs/flatus and did have small bm yesterday. VSS, exam benign, incision c/d/i. Desires dc Documented By: Dea Galdamez MD Coding Level of Care Code 46571 IN/OBS DISCH 30 MIN/LESS Diagnoses examination following delivery Z39.2 Hypothyroid in , antepartum O99.280; E03.9 Gestational diabetes O24.419
== END 2025-02-12 15:15 | disposition home or self-care (01) | DRG 784 ==
LOC: 4S1 13:08 → 4E1 19:04 → EDSTATUS 02-11 07:30
DX: Z88.2 Allergy status to sulfonamides; O42.02 Full-term premature rupture of membranes, onset of labor within 24 hours of rupture; Z77.22 Contact with and (suspected) exposure to environmental tobacco smoke (acute) (chronic); Z30.2 Encounter for sterilization; O34.211 Maternal care for low transverse scar from previous cesarean delivery; O99.283 Endocrine, nutritional and metabolic diseases complicating pregnancy, third trimester; Z3A.38 38 weeks gestation of pregnancy; O34.13 Maternal care for benign tumor of corpus uteri, third trimester; Z79.82 Long term (current) use of aspirin; E03.9 Hypothyroidism, unspecified; Z37.0 Single live birth; D25.9 Leiomyoma of uterus, unspecified; Z79.4 Long term (current) use of insulin; O24.414 Gestational diabetes mellitus in pregnancy, insulin controlled; Z79.890 Hormone replacement therapy; O10.02 Pre-existing essential hypertension complicating childbirth